=== PATIENT | female | born 1935 | race Caucasian/White ===

== ENCOUNTER 2022-07-27 14:52 | Outpatient (CLI) | payer MEDICARE, BC, SELFPAY ==
[2022-07-27 17:44] LABS: Chloride* 102 mmol/L (96-114); Potassium* 4.1 mmol/L (3.6-5.1); Sodium* 140 mmol/L (135-149)
[2022-07-27 17:46] LABS: Cholesterol* 193 mg/dL (90-199); Creatinine* 0.8 mg/dL (0.5-1.5); Estimated Glomerular Filt Rate 72 ml/min
[2022-07-27 17:47] LABS: Blood Urea Nitrogen* 18 mg/dL (7-30); Calcium* 10.3 mg/dL (8.4-10.6); Carbon Dioxide* 30 mmol/L (20-32); Glucose* 90 mg/dL (60-115); Triglycerides* 86 mg/dL (40-149)
[2022-07-27 17:48] LABS: HDL Cholesterol* 77 mg/dL (>=50); LDL Cholesterol Calculated 99 mg/dL (<100)
== END 2022-07-27 14:53 | disposition home or self-care (01) ==
PROVIDERS: PCP Family Medicine; Visit Provider Family Medicine
DX: Z00.00 Encounter for general adult medical examination without abnormal findings (principal); I10 Essential (primary) hypertension; E78.5 Hyperlipidemia, unspecified; E55.9 Vitamin D deficiency, unspecified; Z79.01 Long term (current) use of anticoagulants
CPT/HCPCS: 80048; 80061

== ENCOUNTER 2023-04-25 15:49 | Outpatient (CLI) | payer MEDICARE, BC, SELFPAY | END 2023-04-25 15:50 | disposition home or self-care (01) | LOC: AMB 04-28 13:25 | PROVIDERS: PCP Family Medicine; Visit Provider Family Medicine | DX: S39.92XA Unspecified injury of lower back, initial encounter (principal); W01.0XXA Fall on same level from slipping, tripping and stumbling without subsequent striking against object, initial encounter; Y92.009 Unspecified place in unspecified non-institutional (private) residence as the place of occurrence of the external cause | CPT/HCPCS: A0425; A0429 ==

== ENCOUNTER 2023-04-25 16:35 | Inpatient (IN) | payer MEDICARE, BC, SELFPAY ==
[2023-04-25] VITALS (22 sets, daily range): BP systolic 101–136; BP diastolic 58–91; PULSE 77–104; RESP 18–30; TEMP 36.3–36.8; O2SAT 76–94; BMI 29.2; BMI 28.4
--- NOTE | 2023-04-25 16:39 | ED.FALL ---
HPI - Fall General Time Seen by Provider: 16:39 Date Seen: 04/25/23 Chief Complaint: Fall/Minor Trauma Stated Complaint: Fall Time Seen by Provider: 04/25/23 16:36 Source: patient, EMS and RN notes reviewed Mode of arrival: EMS Limitations: no limitations History of Present Illness HPI Narrative: Patient is an 87-year-old female that fell at home around noon, she resides independently but has 5 children that come help and assist her frequently. She states that she simply caught her foot in a strap or rib in that was on the ground causing her to fall. She states she fell on a carpeted area. She fell on her buttocks, she states she feels a pulling sensation if she moves her lower legs, cannot walk due to the pain. It is more in the right buttock area where she feels the pain. States she did not hit her head but when ask her she is on blood thinners, she states she is on 2 of them. Her medication reconciliation lists Celebrex and apixaban. Her right buttock/hip area is the only place that hurts. Pain is not going down the leg. No numbness tingling. She is having no difficulty breathing, no chest pain, no abdominal pain. Denies any underlying medical reason like dizziness or chest pain that cause the fall. She states she simply tripped because her foot got caught. complaint: fall Fall from: standing Fall witnessed: no Place fall occurred: home Loss of consciousness: No Related Data Home Medications Medication Instructions Recorded Confirmed acetaminophen 500 mg capsule 500 mg PO Q6H PRN 06/04/22 09/21/22 cholecalciferol (vitamin D3) 25 2,000 unit PO DAILY 06/04/22 09/21/22 mcg (1,000 unit) tablet multivitamin 1 tab PO QDAY 06/04/22 09/21/22 potassium chloride 8 mEq 8 meq PO QDAY 06/04/22 09/21/22 tablet,extended release Previous Rx's Medication Instructions Recorded hydrochlorothiazide 12.5 mg tablet 12.5 mg PO QDAY #90 tabs 05/17/22 celecoxib 200 mg capsule 200 mg PO QDAY #21 caps 09/21/22 apixaban 5 mg tablet (Eliquis) See Rx Instructions .Route 10/12/22 .COMPLEX #60 ea sertraline 25 mg tablet See Rx Instructions .Route 10/15/22 .COMPLEX #90 ea potassium chloride 10 mEq 20 meq (2 x 10 mEq) PO QDAY #180 12/14/22 tablet,extended release tabs omeprazole 40 mg capsule,delayed 40 mg PO DAILY #90 caps 12/16/22 release rosuvastatin 10 mg tablet 10 mg PO QDAY #90 tabs 12/20/22 Allergies Allergy/AdvReac Type Severity Reaction Status Date / Time adhesive Allergy Intermediate Redness of Verified 04/25/23 16:38 Skin Review of Systems Status of ROS: Reports: 6 or more systems reviewed and unremarkable except as noted in History and below [facility] Medical History Uterine cancer ?C55 - Malignant neoplasm of uterus, part unspecified (ICD-10) Hiatal hernia ?K44.9 - Diaphragmatic hernia without obstruction or gangrene (ICD-10) Surgical History History of colonoscopy ?Z98.890 - Other specified postprocedural states (ICD-10) History of hysterectomy ?Z90.710 - Acquired absence of both cervix and uterus (ICD-10) History of cholecystectomy ?Z90.49 - Acquired absence of other specified parts of digestive tract (ICD-10) History of appendectomy ?Z90.49 - Acquired absence of other specified parts of digestive tract (ICD-10) Social History Smoking Status: Former smoker Do you use any of these nicotine containing products: None Second hand tobacco smoke exposure: No How often do you have a drink containing alcohol: never How often do you have six or more drinks on one occasion: Never AUDIT-C Alcohol total score: 0 Non-prescribed substance use: denies use Little interest or pleasure in doing things: not at all Feeling down, depressed, or hopeless: not at all service: No Exam Const: Vital Signs, click to edit/add: Vital Signs - 24 hr 04/25/23 16:38 04/25/23 18:07 Temperature 97.4 F L Pulse Rate [Pulse Oximeter] 104 H Respiratory Rate 30 H Blood Pressure [Ri ght Upper Arm] 101/58 L Pulse Oximetry 92 86 L Oxygen Delivery Me thod Room Air Documenting provider has reviewed patient's vital signs: yes Common normals: no apparent distress, average body habitus, oriented x3 and no limitations General appearance: cooperative, comfortable, disheveled and frail appearing Other: Very pleasant and alert. Does not seem uncomfortable unless she attempts moving her pelvis. HENMT: Common normals: normocephalic, head/scalp atraumatic, hearing grossly normal bilaterally and external nose normal Head and scalp: normocephalic and atraumatic Nose: external nose normal Other: No oral pharyngeal trauma noted but oral mucosa is dry. Eye: Common normals: PERRL, EOMs intact bilaterally, conjunctivae normal and no scleral icterus Conjunctiva: conjunctiva(e) normal Pupil: PERRL Neck & C-Spine: Common normals: full ROM (No midline tenderness, no paraspinous tenderness.), no lymphadenopathy, supple, no meningeal signs and no JVD Chest: Common normals: inspection of chest normal and palpation of chest normal Resp: Common normals: normal respiratory effort, no retractions, no use of accessory muscles and clear to auscultation bilaterally Auscultation: clear to auscultation bilaterally Cardio: Common normals: no JVD, regular rate, regular rhythm, S1 normal heart sound, S2 normal heart sound, no gallops, no clicks and no murmurs Rate: regular rate Rhythm: regular rhythm Heart sounds: S1 normal and S2 normal GI: Common normals: Normal to inspection, nondistended, normoactive bowel sounds present, soft to palpation, non-tender, no hepatosplenomegaly, no masses and no bruits Palpation: soft and no hepatosplenomegaly Extremity: Common normals: normal to inspection Other: Moving her feet and bouncing them a bit bilaterally when I come in. There is no shortening of the lower extremities. She has a superficial abrasion on the anterior left knee but no joint effusion, nontender through this joint. When I move her lower extremities, she complains of pain in the right buttock area, does not seem to have definitive hip pain with internal external rotation of the hip. Admittedly, I am not taking her through a large range of motion of this right hip until I see x-rays. Palpating along the right buttock over the bone is painful for her. Neuro: Steve Coma Scale: document GCS findings Steve coma scale eye opening: Spontaneous (4) [place] coma scale verbal response: Orientated (5) [place] coma scale motor response: Obey commands (6) [place] coma scale total score: 15 Common normals: oriented x3, CN's II-XII intact bilaterally, moves all extremities and no sensory deficits noted Meningeal signs: no meningeal signs Course Course Hospital Course: Given that this was unwitnessed and she is on Eliquis, will obtain noncontrast head CT to rule out occult intracranial pathology or minor bleed. Will be getting right hip and pelvis films. Ice is backed a pelvic fracture more so than hip fracture at this time although she still could have hip fracture. Will get appropriate labs. It is likely that this patient will not be returning home given her pain complaints, do suspect underlying fracture which is why we are imaging. Reevaluation(s) Time of Reevaluation #1: 18:07 Reevaluation #1: Reviewed with patient and 2 of her children that her here that she has a pelvic fracture. We are still awaiting the official radiology over read but it appears that there is a right pelvic fracture. Will initiate some Tylenol, add on to pain management from there. She has had nothing. Reviewed with her that she will not be able to return to home where she is independent. She will need a rehab stay likely to facilitate pain management and ambulation/PT/OT until she can safely mobilize independently. Will talk to the hospitalists here next. Consultations Consultation #1: Have reviewed with ortho, talked to Mirela ROACH. Agrees with plan for hospitalization and transition to rehab unless patient can miraculously show independence with this injury. Time: 18:30 Consultation #2: Reviewed with the hospitalist Dr. Hope accepts patient. Time: 19:00 Vital Signs Vital signs: Initial Vital Signs Temperature 97.4 F L 04/25/23 16:38 Temperature Source Temporal Artery Scan 04/25/23 16:38 Pulse Rate 104 H 04/25/23 16:38 Respiratory Rate 30 H 04/25/23 16:38 Blood Pressure 101/58 L 04/25/23 16:38 Blood Pressure Mean 72 04/25/23 16:38 Blood Pressure Position Supine 04/25/23 16:38 Pulse Oximetry 92 04/25/23 16:38 Oxygen Delivery Method Room Air 04/25/23 16:38 Vital Signs Temperature 97.4 F L 04/25/23 16:38 Pulse Rate 104 H 04/25/23 16:38 Respiratory Rate 30 H 04/25/23 16:38 Blood Pressure 101/58 L 04/25/23 16:38 Pulse Oximetry 92 04/25/23 16:38 Oxygen Delivery Method Room Air 04/25/23 16:38 Temperature 97.4 F L 04/25/23 16:38 Pulse Rate 104 H 04/25/23 16:38 Respiratory Rate 30 H 04/25/23 16:38 Blood Pressure 101/58 L 04/25/23 16:38 Pulse Oximetry 86 L 04/25/23 18:07 Oxygen Delivery Method Room Air 04/25/23 16:38 - Fall Lab Data Attestation: I reviewed the patient's lab results. Labs: Lab Results 04/25/23 04/25/23 04/25/23 Range/Units 17:06 17:38 18:49 WBC 13.28 H (4.50-11.00) K/uL RBC 4.32 (4.00-5.20) m/uL Hgb 14.8 (12.0-16.0) gm/dL Hct 43.6 (33.0-51.0) % MCV 101 H (80-100) fL MCH 34 (26-34) pg MCHC 34 (32-36) gm/dL RDW Coeff of [place] 13.4 (11.5-15.5) % Plt Count 196 (140-440) K/uL Neut % (Auto) 86.0 H (42.0-72.0) % Lymph % (Auto) 5.3 L (20-44) % [place] % (Auto) 7.8 (0.0-11.0) % Eos % (Auto) 0.1 (0.0-7.0) % Baso % (Auto) 0.5 (0.0-3.0) % Neut # (Auto) 11.40 H (1.7-7.0) K/uL Lymph # (Auto) 0.70 L (0.90-2.90) K/uL [place] # (Auto) 1.00 H (0.00-0.90) K/UL Eos # (Auto) 0.00 (0.00-0.50) K/uL Baso # (Auto) 0.10 (0.00-0.30) K/uL Abs Immat Gran (auto) 0.00 (0.00-0.30) K/uL Imm/Tot Granulo (auto) 0.3 % Sodium 138 (135-149) mmol/L Potassium 3.8 (3.6-5.1) mmol/L Chloride 106 (96-114) mmol/L Carbon Dioxide 26 (20-32) mmol/L BUN 17 (7-30) mg/dL Creatinine 0.8 (0.5-1.5) mg/dL Estimated Creat Clear 34.87 Estimated GFR 72 ml/min Glucose 121 H (60-115) mg/dL Lactate 2.5 H (0.5-1.9) mmol/L Calcium 9.8 (8.4-10.6) mg/dL Total Bilirubin 2.2 H (0.1-1.5) mg/dL AST 54 H (12-35) U/L ALT 31 (4-35) U/L Alkaline Phosphatase 124 (40-150) U/L Total Creatine Kinase 120 H (41-117) U/L Total Protein 7.5 (6.0-8.3) g/dL Albumin 3.7 (3.3-5.0) g/dL Lab Acknowledgement New Spec Needed Test Added Imaging Data CT scan - head: Attestation: I have reviewed the pertinent imaging results. Radiologist's impression: Patient: REX MÁRQUEZ Facility:?[facility] Patient ID:?[id number] Site Patient ID:?[id number]. Site :?[id number] Study:?CT Head W/O-04/25/2023 5:11:58 PM Ordering Physician:Cj Verdin Final Report: CLINICAL HISTORY: Fall on anticoagulation therapy. TECHNIQUE: Standard helical CT image acquisition of the brain was performed. COMPARISON: Head CT dated 02/21/2021. FINDINGS: There is no intracranial hemorrhage, extra-axial collection, mass effect, or midline shift. Be-white matter differentiation is preserved. Age-appropriate [id number] generalized parenchymal volume loss. No acute hydrocephalus. Patchy hypoattenuation in the white matter of both hemispheres likely reflects sequela of chronic small vessel ischemia. Intracranial atherosclerotic calcification. No displaced calvarial fracture. Thinning of the ocular lenses. The paranasal sinuses are unremarkable. The mastoid air cells are unremarkable. IMPRESSION: 1. No CT evidence of acute intracranial abnormality or closed head injury. 2. Senescent changes including generalized parenchymal volume loss and findings likely reflecting sequela of chronic small vessel ischemia. Please note that all CT scans at this facility use dose modulation, iterative reconstruction, and/or weight-based dosing when appropriate to reduce radiation dose to as low as reasonably achievable. Dictated by Pee Peacock MD @ 04/25/2023 6:25:01 PM (Electronic Signature) XR pelvis/right hip: Attestation: I have reviewed the pertinent imaging results. My impression: See inferior and superior right pubic rami fractures on my preliminary read. Radiologist's impression: Patient: REX MÁRQUEZ Facility:?[facility] Patient ID:?[id number] Site Patient ID:?[id number] Site :?[id number] Study:?XRay Hip Right -04/25/2023 5:12:41 PM Ordering Physician:Cj Verdin Final Report: INDICATION: Fall. TECHNIQUE: Two views the right hip. COMPARISON: 05/11/2021. FINDINGS: Diffuse demineralization. Minimally displaced fractures of the right superior and inferior pubic rami. No dislocation or additional fracture identified. Mild bilateral hip joint space narrowing. The pubic symphysis and sacroiliac joints are intact. Spondylosis of the imaged inferior lumbar spine. IMPRESSION: 1. Minimally displaced right superior and inferior pubic rami fractures. 2. Diffuse demineralization without additional fracture identified. Dictated by Junito Schroeder MD @ 04/25/2023 6:35:46 PM Dictated by: Junito Schroeder MD @ 04/25/2023 18:35:56 (Electronic Signature) ECG Data Attestation: I personally reviewed and interpreted this ECG as follows: (Atrial fibrillation with PVCs, rate 98 beats per minute.) ECG interpretation date: 04/25/23 ECG interpretation time: 19:01 Critical Care Time Critical Care Time Critical Care Time: No Discharge Plan Discharge Clinical Impression: Fall, Fracture of inferior pubic ramus, Fracture of right superior pubic ramus Patient Disposition: Admitted As Observation
--- NOTE | 2023-04-25 16:43 | CRLHL7_ITS ---
For Patients: As a result of the Century Cures Act, medical imaging exams and procedure reports are released immediately into your electronic medical record. You may view this report before your referring provider. If you have questions, please contact your health care provider. CLINICAL HISTORY: Fall on anticoagulation therapy. TECHNIQUE: Standard helical CT image acquisition of the brain was performed. COMPARISON: Head CT dated 02/21/2021. FINDINGS: There is no intracranial hemorrhage, extra-axial collection, mass effect, or midline shift. Be-white matter differentiation is preserved. Age-appropriate [id number] generalized parenchymal volume loss. No acute hydrocephalus. Patchy hypoattenuation in the white matter of both hemispheres likely reflects sequela of chronic small vessel ischemia. Intracranial atherosclerotic calcification. No displaced calvarial fracture. Thinning of the ocular lenses. The paranasal sinuses are unremarkable. The mastoid air cells are unremarkable. IMPRESSION: 1. No CT evidence of acute intracranial abnormality or closed head injury. 2. Senescent changes including generalized parenchymal volume loss and findings likely reflecting sequela of chronic small vessel ischemia. Please note that all CT scans at this facility use dose modulation, iterative reconstruction, and/or weight-based dosing when appropriate to reduce radiation dose to as low as reasonably achievable. Dictated by Pee Peacock MD @ 04/25/2023 6:25:01 PM (Electronically Signed)
--- NOTE | 2023-04-25 16:43 | CRLHL7_ITS ---
For Patients: As a result of the Century Cures Act, medical imaging exams and procedure reports are released immediately into your electronic medical record. You may view this report before your referring provider. If you have questions, please contact your health care provider. INDICATION: Fall. TECHNIQUE: Two views the right hip. COMPARISON: 05/11/2021. FINDINGS: Diffuse demineralization. Minimally displaced fractures of the right superior and inferior pubic rami. No dislocation or additional fracture identified. Mild bilateral hip joint space narrowing. The pubic symphysis and sacroiliac joints are intact. Spondylosis of the imaged inferior lumbar spine. IMPRESSION: 1. Minimally displaced right superior and inferior pubic rami fractures. 2. Diffuse demineralization without additional fracture identified. Dictated by Junito Schroeder MD @ 04/25/2023 6:35:46 PM Dictated by: Junito Schroeder MD @ 04/25/2023 18:35:56 (Electronically Signed)
[2023-04-25 17:07] LABS: Lab Add On Test New Spec Needed
[2023-04-25 17:44] LABS: Basophils Percent Auto 0.5 % (0.0-3.0); Eosinophils Percent Auto 0.1 % (0.0-7.0); Hematocrit 43.6 % (33.0-51.0); Hemoglobin* 14.8 gm/dL (12.0-16.0); Immature Granulocytes Pct Auto 0.3 %; Lactate* 2.5 mmol/L (0.5-1.9); Lymphocytes Percent Auto 5.3 % (20-44); Mean Corpuscular HGB Conc 34 gm/dL (32-36); Mean Corpuscular Hemoglobin 34 pg (26-34); Mean Corpuscular Volume 101 fL (80-100); Monocytes Percent Auto 7.8 % (0.0-11.0); Platelet Count* 196 K/uL (140-440); RDW Coefficient of Variation % 13.4 % (11.5-15.5); Red Blood Count 4.32 m/uL (4.00-5.20); White Blood Count* 13.28 K/uL (4.50-11.00)
[2023-04-25 18:00] LABS: Albumin* 3.7 g/dL (3.3-5.0)
[2023-04-25 18:01] LABS: Chloride* 106 mmol/L (96-114); Potassium* 3.8 mmol/L (3.6-5.1); Sodium* 138 mmol/L (135-149)
[2023-04-25 18:02] LABS: Slide Review Reflex No
[2023-04-25 18:03] LABS: Alkaline Phosphatase* 124 U/L (40-150); Aspartate Amino Transferase* 54 U/L (12-35); Blood Urea Nitrogen* 17 mg/dL (7-30); Carbon Dioxide* 26 mmol/L (20-32); Creatinine* 0.8 mg/dL (0.5-1.5); Est. Creatinine Clearance* 34.87; Estimated Glomerular Filt Rate 72 ml/min; Total Protein* 7.5 g/dL (6.0-8.3)
[2023-04-25 18:04] LABS: Alanine Aminotransferase* 31 U/L (4-35); Calcium* 9.8 mg/dL (8.4-10.6); Creatine Kinase* 120 U/L (41-117); Glucose* 121 mg/dL (60-115)
[2023-04-25] MEDS: 0.9 % SODIUM CHLORIDE 500 ML 500 ML IV (18:38)
[2023-04-25] MEDS: ACETAMINOPHEN 500 MG TABLET 1000 MG PO (18:39)
[2023-04-25 19:42] LABS: Troponin I* 0.02 ng/mL (0.01-0.04)
--- NOTE | 2023-04-25 20:04 | ED.NURSE ---
pt report given off to oncoming nurse
--- NOTE | 2023-04-25 21:16 | PC.NURSE ---
report given to dianna VELASQUEZ on medsurg, patient taken to room 245, all belongings sent with patient and family
--- NOTE | 2023-04-25 22:50 | PM.IMHP1 ---
Hospitalist- H&P: HPI History of Present Illness Time Seen by Provider: 22:00 Date Seen: 04/25/23 Chief complaint: Fall Narrative: Sakina Taveras is a 87 year old woman who lives alone in her home independently, although her children assist her daily. She is legally blind and deaf. According to family her cognition has been gradually declining. She was in her usual state of health until around noon today when she was walking in her home and her foot became caught or entangled in something and she fell over. This was not witnessed. Fell on a carpeted area. Fell on her buttock. Did not strike her head. No loss of consciousness. Had immediate right buttock pain. Eventually was able to get help and then came into the emergency department for further assessment subsequently. Review of Systems Status of ROS: Reports: 10 or more systems reviewed and unremarkable except as noted in History and below Narrative: Denies any other pain. Denies angina, anginal equivalent, syncope, near syncope, nausea, vomiting, palpitations or fluttering, diaphoresis, dyspnea at rest, paroxysmal nocturnal dyspnea, orthopnea, claudication, edema. Denies diarrhea, constipation, dysuria, urgency, frequency, hematuria. No other trauma or injury. No other fall. No recent travel. No recent blood loss of any sort. Attempted getting her comfortable in the emergency department but were unable to do so even after IV morphine. Difficult for patient to understand that she cannot go home now. She understands she has fractures in her pelvis, and she has a lot of pain in association with this, but she still does not understand how she it is that she cannot go home. We tell her multiple times that she is not able to go home because her pain is not under control, she is unable to demonstrate to us that she is independent in her cares, let alone simply transfer herself while laying down due to severity of the pain. Moreover she is unable to demonstrate ability to care for herself independently at this time and she has no one that can support her 24 hours a day in her home. [facility] Medical History (Updated 04/25/23 @ 23:17 by Paul Hope MD) Nonexudative age-related macular degeneration ?H35.3190 - Nonexudative age-related macular degeneration, unspecified eye, stage unspecified (ICD-10) Age-related cognitive decline ?R41.81 - Age-related cognitive decline (ICD-10) Sensorineural hearing loss (SNHL) of both ears ?H90.3 - Sensorineural hearing loss, bilateral (ICD-10) GERD (gastroesophageal reflux disease) ?K21.9 - Gastro-esophageal reflux disease without esophagitis (ICD-10) Insomnia ?G47.00 - Insomnia, unspecified (ICD-10) DJD of right shoulder ?M19.011 - Primary osteoarthritis, right shoulder (ICD-10) Vitamin D deficiency ?E55.9 - Vitamin D deficiency, unspecified (ICD-10) Upper back pain (05/12/11) ?M54.9 - Dorsalgia, unspecified (ICD-10) Seasonal allergic rhinitis ?J30.2 - Other seasonal allergic rhinitis (ICD-10) Rotator cuff arthropathy of left shoulder ?M12.812 - Other specific arthropathies, not elsewhere classified, left shoulder (ICD-10) Restless legs syndrome ?G25.81 - Restless legs syndrome (ICD-10) Polyp of colon ?K63.5 - Polyp of colon (ICD-10) Osteopenia (05/18/11) ?M85.80 - Other specified disorders of bone density and structure, unspecified site (ICD-10) Osteoarthritis of thoracic spine ?M47.814 - Spondylosis without myelopathy or radiculopathy, thoracic region (ICD-10) Menopausal flushing (05/18/11) ?N95.1 - Menopausal and female climacteric states (ICD-10) residential current use of anticoagulant therapy ?Z79.01 - termite inspector (current) use of anticoagulants (ICD-10) Diverticulosis of intestine (04/21/10) ?K57.90 - Diverticulosis of intestine, part unspecified, without perforation or abscess without bleeding (ICD-10) Constipation ?K59.00 - Constipation, unspecified (ICD-10) Basal cell carcinoma of nose ?C44.311 - Basal cell carcinoma of skin of nose (ICD-10) Atrial fibrillation ?I48.91 - Unspecified atrial fibrillation (ICD-10) Osteoarthritis of right knee ?M17.11 - Unilateral primary osteoarthritis, right knee (ICD-10) Anxiety ?F41.9 - Anxiety disorder, unspecified (ICD-10) Hiatal hernia ?K44.9 - Diaphragmatic hernia without obstruction or gangrene (ICD-10) Hypertension ?I10 - Essential (primary) hypertension (ICD-10) Hyperlipidemia ?E78.5 - Hyperlipidemia, unspecified (ICD-10) Uterine cancer ?C55 - Malignant neoplasm of uterus, part unspecified (ICD-10) Surgical History History of colonoscopy ?Z98.890 - Other specified postprocedural states (ICD-10) History of hysterectomy ?Z90.710 - Acquired absence of both cervix and uterus (ICD-10) History of cholecystectomy ?Z90.49 - Acquired absence of other specified parts of digestive tract (ICD-10) History of appendectomy ?Z90.49 - Acquired absence of other specified parts of digestive tract (ICD-10) Social History (Updated 04/25/23 @ 22:52 by Paul Hope MD) Narrative: . Lives alone in her home. Needs daily support from children who live nearby. Declining cognition. Legally deaf and blind. Designates daughter, Gabbie Domingo, as power of real estate attorney for health should that be needed. Requests DNR DNI resuscitation status. Dr. Juan Ac is her primary care physician. Smoking Status: Former smoker Do you use any of these nicotine containing products: None Second hand tobacco smoke exposure: No How often do you have a drink containing alcohol: never How often do you have six or more drinks on one occasion: Never AUDIT-C Alcohol total score: 0 Non-prescribed substance use: denies use Little interest or pleasure in doing things: not at all Feeling down, depressed, or hopeless: not at all service: No Meds Home Medications and Allergies Home Medications Medication Instructions Recorded Confirmed Type acetaminophen 500 mg capsule 500 mg PO Q6H PRN 06/04/22 09/21/22 History cholecalciferol (vitamin D3) 25 2,000 unit PO DAILY 06/04/22 09/21/22 History mcg (1,000 unit) tablet multivitamin 1 tab PO QDAY 06/04/22 09/21/22 History potassium chloride 8 mEq 8 meq PO QDAY 06/04/22 09/21/22 History tablet,extended release Allergies Allergy/AdvReac Type Severity Reaction Status Date / Time adhesive Allergy Intermediate Redness of Verified 07/31/23 16:38 Skin Exam Narrative: Exam Narrative: Appears rather anxious when I examine her in her hospital bed. Having difficulty understanding why she cannot return home presently even though she is not able to achieve any level of meaningful comfort yet at this time despite oral and IV analgesics. Very hard of hearing requiring time and effort and patient's to communicate with her meaningfully. Legally blind and unable to demonstrate ability to see adequately. Alert, oriented to self, place, in part to time, in part to situation. Mood and affect are congruent. Winces with any attempted movement of her pelvis even when supported by family or nursing staff. Tympanic membranes are normal. Dry buccal mucosa. Dentition in poor repair. Missing teeth. No icterus. No conjunctival injection. Extraocular muscles are intact. No nystagmus. Neck is supple. Midline trachea. No JVD or hepatojugular reflux. No carotid bruits. Lungs are clear to auscultation. Barrel-shaped chest. Mildly prolonged expiratory phase. No wheezing, rhonchi, or rales. Chest wall excursions full. No CVA tenderness. No tenderness to percussion over the spine. Heart tones with irregular rhythm. Normal S1-S2. Soft systolic murmur left lower sternal border. PMI not laterally displaced. Abdomen with active bowel sounds, soft, nontender. No rebound or guarding. Extremities without edema. Palpable pulses in upper and lower extremities. Extremities are cool. Capillary refill less than 3 seconds. Discomfort with passive range of motion of the right hip. Normal passive range of motion of the right knee, ankle. Normal passive range of motion and active range of motion of the left hip, knee, ankle. No focal motor neurologic deficits. No tremor or asterixis. Skin is intact. Const: Vital Signs, click to edit/add: Vital Signs - 24 hr 04/25/23 16:38 04/25/23 17:22 04/25/23 17:30 Temperature 97.4 F L Pulse Rate 87 95 Pulse Rate [Pulse Oximeter] 104 H Pulse Rate [Right Pulse Oximeter] Respiratory Rate 30 H Blood Pressure Blood Pressure [Ri ght Arm] Blood Pressure [Ri ght Upper Arm] 101/58 L Pulse Oximetry 92 86 L 92 Oxygen Delivery [facility] Room Air 04/25/23 17:34 04/25/23 17:45 04/25/23 18:00 Temperature Pulse Rate 88 89 Pulse Rate [Pulse Oximeter] Pulse Rate [Right Pulse Oximeter] Respiratory Rate Blood Pressure Blood Pressure [Ri ght Arm] Blood Pressure [Ri ght Upper Arm] Pulse Oximetry 87 L 93 76 L Oxygen Delivery [facility] 04/25/23 18:04 04/25/23 18:07 04/25/23 18:15 Temperature Pulse Rate 86 89 Pulse Rate [Pulse Oximeter] Pulse Rate [Right Pulse Oximeter] Respiratory Rate Blood Pressure Blood Pressure [Ri ght Arm] Blood Pressure [Ri ght Upper Arm] Pulse Oximetry 87 L 86 L 89 Oxygen Delivery [facility] 04/25/23 18:30 04/25/23 18:33 04/25/23 18:45 Temperature Pulse Rate 92 85 94 Pulse Rate [Pulse Oximeter] Pulse Rate [Right Pulse Oximeter] Respiratory Rate Blood Pressure 124/91 H Blood Pressure [Ri ght Arm] Blood Pressure [Ri ght Upper Arm] Pulse Oximetry 86 L 93 89 Oxygen Delivery [facility] 04/25/23 19:03 04/25/23 19:07 04/25/23 19:07 Temperature Pulse Rate 104 H Pulse Rate [Pulse Oximeter] Pulse Rate [Right Pulse Oximeter] Respiratory Rate Blood Pressure 112/64 Blood Pressure [Ri ght Arm] Blood Pressure [Ri ght Upper Arm] 112/64 Pulse Oximetry 91 Oxygen Delivery [facility] 04/25/23 19:09 04/25/23 19:31 04/25/23 20:01 Temperature 97.4 F L Pulse Rate 77 84 Pulse Rate [Pulse Oximeter] Pulse Rate [Right Pulse Oximeter] Respiratory Rate 22 18 18 Blood Pressure 117/67 122/85 Blood Pressure [Ri ght Arm] Blood Pressure [Ri ght Upper Arm] Pulse Oximetry 93 94 Oxygen Delivery [facility] 04/25/23 20:28 04/25/23 20:31 04/25/23 21:01 Temperature 98.3 F Pulse Rate 82 81 Pulse Rate [Pulse Oximeter] 80 Pulse Rate [Right Pulse Oximeter] Respiratory Rate 18 18 18 Blood Pressure 114/74 112/72 Blood Pressure [Ri ght Arm] Blood Pressure [Ri ght Upper Arm] 122/85 Pulse Oximetry 92 94 94 Oxygen Delivery [facility] Room Air 04/25/23 21:30 Temperature 98.2 F Pulse Rate Pulse Rate [Pulse Oximeter] Pulse Rate [Right Pulse Oximeter] 93 Respiratory Rate 18 Blood Pressure Blood Pressure [Ri ght Arm] 136/67 Blood Pressure [Ri ght Upper Arm] Pulse Oximetry 94 Oxygen Delivery [facility] Hospitalist - H&P: Result Labs Labs: Short CBC 04/25/23 Range/Units 17:38 WBC 13.28 H (4.50-11.00) K/uL Hgb 14.8 (12.0-16.0) gm/dL Hct 43.6 (33.0-51.0) % Plt Count 196 (140-440) K/uL BMP 04/25/23 17:38 Sodium 138 Potassium 3.8 Chloride 106 Carbon Dioxide 26 BUN 17 Creatinine 0.8 Glucose 121 H Calcium 9.8 Cardiac Enzymes 04/25/23 Range/Units 17:38 Total Creatine Kinase 120 H (41-117) U/L Troponin I 0.02 (0.01-0.04) ng/mL Liver Function 04/25/23 Range/Units 17:38 Total Bilirubin 2.2 H (0.1-1.5) mg/dL AST 54 H (12-35) U/L ALT 31 (4-35) U/L Alkaline Phosphatase 124 (40-150) U/L Albumin 3.7 (3.3-5.0) g/dL ECG ECG interpretation date: 04/25/23 ECG interpretation time: 22:00 Prior ECG tracings: not available for review Interpretation: Atrial fibrillation. Rate controlled. Poor R-wave progression anteriorly. No acute ischemic changes. Imaging CT scan - head: Attestation: I have reviewed the pertinent imaging results. Radiologist's impression: IMPRESSION: 1. No CT evidence of acute intracranial abnormality or closed head injury. 2. Senescent changes including generalized parenchymal volume loss and findings likely reflecting sequela of chronic small vessel ischemia. Right hip x-ray: Attestation: I have reviewed the pertinent imaging results. Radiologist's impression: IMPRESSION: 1. Minimally displaced right superior and inferior pubic rami fractures. 2. Diffuse demineralization without additional fracture identified. Assessment and Plan Assessment and plan (1) Fall: Status: Acute (2) Fracture of inferior pubic ramus: Status: Acute (3) Fracture of right superior pubic ramus: Status: Acute (4) Pain: Problem comment: Unable to control pain emergency department including with IV morphine. Status: Acute (5) Age-related cognitive decline: Status: Acute (6) Nonexudative age-related macular degeneration: Problem comment: legally blind Status: Acute (7) Sensorineural hearing loss (SNHL) of both ears: Status: Acute (8) Osteoporosis: Problem comment: Will warrant treatment consideration when in outpatient setting Status: Acute (9) Physical debility: Problem comment: Due to legal blindness, near deafness, and now right pelvic fracture and pain associated with this. Status: Acute Plan 1. Reviewed with patient, daughter, and son. 2. Admit to hospital for pain control efforts, nonpharmacologic and pharmacologic. 3. Physical therapy and occupational therapy assessment and interventions, including cognitive assessment and interventions. 4. Continue with scheduled acetaminophen, and as needed oral oxycodone and IV morphine. After we achieve adequate pain control, consider scheduling oxycodone or adding low-dose transdermal fentanyl patch if warranted. For now will continue with her daily scheduled celecoxib 200 mg orally once daily, plus PPI that she is already on. Will add as needed tizanidine for muscle spasm. 5. IV fluids for her mild dehydrated state. 6. Schedule stool softener. 7. supervisor customer services to assist with discharge disposition planning. Recommended to patient family that we consider transitional care services for her before we can safely help her return home. 8. Continue with other supportive efforts for now. Will hold off on her hydrochlorothiazide initially. 9. Continue with her apixaban for now. 10. Orthopedic surgery consultation and recommendations. I am told that the orthopedic surgery team has already reviewed the patient's medical record and x-rays and has made a preliminary determination that she is not a surgical candidate for these fractures, and she may weight bear as tolerated. 11. Given the patient's underlying comorbid medical conditions, including her legal blindness and near deafness, her baseline physical debility just got a hold lot more difficult to manage with this acute fracture and pain. Will focus on trying to achieve adequate pain control initially. I explained to patient and family that the opioids that we add may place her at higher risk for complications, including constipation, urinary retention, decreased cognition, etc. 12. Continue to monitor labs. Will ask for a direct bilirubin given the mildly elevated total bilirubin. I am hopeful that she has an indirect hyperbilirubinemia in association with the mildly dehydrated state. If not, and she has an elevated direct bilirubin, may need to consider abdominal ultrasound assessment. Monitor CBC, lactate, LFTs, renal function. 13. Patient, daughter, son are in agreement with above stated plans and recommendations. Answered their questions to their satisfaction.
[2023-04-25 23:05] LABS: Bilirubin Direct* 0.3 mg/dL (0.0-0.5)
[2023-04-25 23:10] LABS: Bilirubin Total* 2.1 mg/dL (0.1-1.5)
[2023-04-25] MEDS: 0.9 % SODIUM CHLORIDE 1000 ml 1,000 ML IV (23:54)
[2023-04-25] MEDS: MELATONIN 3 MG TABLET PO (23:57)
[2023-04-25] MEDS: OXYCODONE 5 MG TABLET 2.5 MG PO (23:57)
[2023-04-26] MEDS: MORPHINE 4 MG/ML INJ IVP (02:43)
[2023-04-26 03:00] VITALS: BP 137/79; PULSE 76; RESP 18; TEMP 36.8; O2SAT 90
[2023-04-26 03:39] LABS: Appearance Urine Cloudy (Clear); Bilirubin Urine Negative (Negative); Blood Urine Negative (Negative); Color Urine Yellow (Yellow); Glucose Urine Negative (Negative); Ketones Urine Negative (Negative); Leukocyte Esterase Urine Negative (Negative); Nitrite Urine Positive (Negative); Protein Urine Trace (Negative); Specific Gravity Urine >= 1.030 (1.000-1.030); pH Urine 5.5 (5.0-8.5)
[2023-04-26 03:44] LABS: Bacteria Urine Many; RBC Urine 0-2 (0-2); Squamous Epithelial Cell Urine Few (None-Few)
--- NOTE | 2023-04-26 06:22 | PC.NURSE ---
Shift note: Pt arrived to the unit at 2114 on bed. Pt presented with the history of recent fall which resulted into pubic bone fracture. Pt is legally blind and hard of hearing. Complained of pain which get worse with reposition and transfer. Used bedpan in bed. Pt has abrasion and bruise to the left knee. Accidentally removed the IV line before getting to the floor. New one inserted. Vitally stable and had adequate sleep.
[2023-04-26 06:51] LABS: HCO3 VBG 26 mmol/L (21-28); Lactate* 1.9 mmol/L (0.5-1.9); PCO2 VBG 45 mmHG (40-50); PO2 VBG 30.9 mmHG (25-47); pH VBG 7.372 (7.32-7.43)
[2023-04-26 07:01] LABS: Hematocrit 37.5 % (33.0-51.0); Hemoglobin* 12.8 gm/dL (12.0-16.0); Mean Corpuscular HGB Conc 34 gm/dL (32-36); Mean Corpuscular Hemoglobin 35 pg (26-34); Mean Corpuscular Volume 101 fL (80-100); Platelet Count* 157 K/uL (140-440); White Blood Count* 12.78 K/uL (4.50-11.00)
[2023-04-26 07:24] LABS: Slide Review Reflex No
[2023-04-26 07:31] LABS: Creatine Kinase* 155 U/L (41-117)
[2023-04-26 07:40] VITALS: BP 121/83; PULSE 68; RESP 28; TEMP 36.7; O2SAT 90
[2023-04-26] MEDS: ROSUVASTATIN CALCIUM 10 MG TABLET PO (09:02)
[2023-04-26] MEDS: OMEPRAZOLE 20 MG CAPSULE DR 40 MG PO (09:02)
[2023-04-26] MEDS: CELECOXIB 200 MG CAPSULE PO (09:02)
[2023-04-26] MEDS: SERTRALINE 50 MG TABLET 25 MG PO (09:03)
[2023-04-26] MEDS: APIXABAN 5 MG TABLET PO ×2 (09:03→20:37)
[2023-04-26] MEDS: SENNOSIDES/DOCUSATE TABLET 1 TAB PO ×2 (09:03→20:37)
[2023-04-26] MEDS: hydroCHLOROthiazide 12.5 MG CAPSULE PO (09:03)
[2023-04-26] MEDS: ACETAMINOPHEN 650 MG TABLET ER 1300 MG PO ×2 (09:08→17:01)
[2023-04-26] MEDS: OXYCODONE 5 MG TABLET PO (09:08)
[2023-04-26] MEDS: SODIUM CHLORIDE 0.9 % (FLUSH) 10 ML SYRINGE 5 ML IVF ×2 (09:09→20:37)
--- NOTE | 2023-04-26 09:39 | CRLHL7_ITS ---
For Patients: As a result of the Cures Act, medical imaging exams and procedure reports are released immediately into your electronic medical record. You may view this report before your referring provider. If you have questions, please contact your health care provider. INDICATION: tachypnea, hypoxia TECHNIQUE: Chest 1 view COMPARISON: 02/21/2021 FINDINGS: Bronchial wall thickening is present within both lungs, particularly on the right. Cardiomegaly. Mild fullness of the vascularity. Hiatal hernia. No drainable pleural effusion or pneumothorax. Degenerative changes. IMPRESSION: Bilateral bronchiolitis, right greater than left. Mild fluid overload/pulmonary venous hypertension. Dictated by Ace Kimbrough MD @ 04/26/2023 10:31:52 AM (Electronically Signed)
--- NOTE | 2023-04-26 09:46 | PM.IMPN1 ---
Progress Note: A&P Assessment and plan (1) Fall: Problem details: - likely mechanical, also has history of a fib/CHF Status: Acute (2) Fracture of inferior pubic ramus: Problem details: - nonsurgical per Ortho colleagues - WBAT Status: Acute (3) Fracture of right superior pubic ramus: Status: Acute (4) Rhabdomyolysis: Problem details: - 2/2 fall, CK improved from admission Status: Acute (5) Atrial fibrillation: Problem details: - noted on 12/15 TTE (results below) - anticoagulated on Apixaban Final Impressions: 1. Normal LV size, normal wall thickness, normal global systolic function with an estimated EF of 60 - 65%. 2. Moderately enlarged left atrium. 3. Right ventricular cavity size is mildly enlarged, global systolic RV function is normal. 4. The aortic valve is sclerotic and tricuspid, no stenosis and no regurgitation. 5. The mitral valve is normal, mild to moderate mitral regurgitation. 6. Mild-moderate tricuspid regurgitation. 7. The inferior vena cava is normal sized, respiratory size variation greater than 50%. 8. No pericardial effusion. 9. Compared to prior exam images of 11/25/2017: - Mitral regurgitation has increased. - Tricuspid regurgitation has increased. - The right ventricular systolic function is unchanged. - RV size has increased. The atria are more dilated. The atrial fibrillation is new. 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 She has no concerns for the hospitalist team this morning. Exam Narrative: Exam Narrative: GEN: Alert HEENT: EOMIs bilaterally, no scleral icterus CV: Irregularly irregular, no concerning murmurs R: Intermittent tachypnea noted during visit, occasionally has O2 saturation 87-88% on RA. Fine rales bilateral bases, no wheezing. Air movement is adequate Skin: No concerning skin lesions or rashes on exposed skin Neuro: No focal deficits Psych: Appropriate, MCI apparent Const: Vital Signs, click to edit/add: Vital Signs - 24 hr 04/25/23 16:38 04/25/23 17:22 04/25/23 17:30 Temperature 97.4 F L Pulse Rate 87 95 Pulse Rate [Pulse Oximeter] 104 H Pulse Rate [Right Pulse Oximeter] Respiratory Rate 30 H Blood Pressure Blood Pressure [Ri ght Arm] Blood Pressure [Ri ght Upper Arm] 101/58 L Pulse Oximetry 92 86 L 92 Oxygen Delivery Me thod Room Air 04/25/23 17:34 04/25/23 17:45 04/25/23 18:00 Temperature Pulse Rate 88 89 Pulse Rate [Pulse Oximeter] Pulse Rate [Right Pulse Oximeter] Respiratory Rate Blood Pressure Blood Pressure [Ri ght Arm] Blood Pressure [Ri ght Upper Arm] Pulse Oximetry 87 L 93 [facility] 04[facility] 18:04 04/25/23 18:07 04/25/23 18:15 Temperature Pulse Rate 86 89 Pulse Rate [Pulse Oximeter] Pulse Rate [Right Pulse Oximeter] Respiratory Rate Blood Pressure Blood Pressure [Ri ght Arm] Blood Pressure [Ri ght Upper Arm] Pulse Oximetry 87 L 86 L 89 [facility] 04/25/23 18:30 04/25/23 18:33 04/25/23 18:45 Temperature Pulse Rate 92 85 94 Pulse Rate [Pulse Oximeter] Pulse Rate [Right Pulse Oximeter] Respiratory Rate Blood Pressure 124/91 H Blood Pressure [Ri ght Arm] Blood Pressure [Ri ght Upper Arm] Pulse Oximetry 86 L 93 89 [facility] 04/25/23 19:03 04/25/23 19:07 04/25/23 19:07 Temperature Pulse Rate 104 H Pulse Rate [Pulse Oximeter] Pulse Rate [Right Pulse Oximeter] Respiratory Rate Blood Pressure 112/64 Blood Pressure [Ri ght Arm] Blood Pressure [Ri ght Upper Arm] 112/64 Pulse Oximetry 91 [facility] 04/25/23 19:09 04/25/23 19:31 04/25/23 20:01 Temperature 97.4 F L Pulse Rate 77 84 Pulse Rate [Pulse Oximeter] Pulse Rate [Right Pulse Oximeter] Respiratory Rate 22 18 18 Blood Pressure 117/67 122/85 Blood Pressure [Ri ght Arm] Blood Pressure [Ri ght Upper Arm] Pulse Oximetry 93 94 Oxygen Delivery [facility] 04/25/23 20:28 04/25/23 20:31 04/25/23 21:01 Temperature 98.3 F Pulse Rate 82 81 Pulse Rate [Pulse Oximeter] 80 Pulse Rate [Right Pulse Oximeter] Respiratory Rate 18 18 18 Blood Pressure 114/74 112/72 Blood Pressure [Ri ght Arm] Blood Pressure [Ri ght Upper Arm] 122/85 Pulse Oximetry 92 94 94 Oxygen Delivery [facility] Room Air 04/25/23 21:30 04/25/23 23:00 04/25/23 23:00 Temperature 98.2 F Pulse Rate Pulse Rate [Pulse Oximeter] Pulse Rate [Right Pulse Oximeter] 93 87 Respiratory Rate 18 18 18 Blood Pressure Blood Pressure [Ri ght Arm] 136/67 Blood Pressure [Ri ght Upper Arm] Pulse Oximetry 94 94 Oxygen Delivery [facility] Room Air Room Air 04/25/23 23:00 04/26/23 03:00 04/26/23 07:40 Temperature 98.2 F 98.2 F Pulse Rate Pulse Rate [Pulse Oximeter] Pulse Rate [Right Pulse Oximeter] 87 76 Respiratory Rate 18 18 28 H Blood Pressure Blood Pressure [Ri ght Arm] 133/78 137/79 Blood Pressure [Ri ght Upper Arm] Pulse Oximetry 94 90 90 Oxygen Delivery [facility] Room Air Room Air Room Air 04/26/23 07:40 04/26/23 07:40 Temperature 98.0 F Pulse Rate Pulse Rate [Pulse Oximeter] Pulse Rate [Right Pulse Oximeter] 68 68 Respiratory Rate 28 H 28 H Blood Pressure Blood Pressure [Ri ght Arm] 121/83 Blood Pressure [Ri t Upper Arm] Pulse Oximetry 90 Oxygen Delivery Me thod Room Air Labs Labs: Laboratory Results - last 24 hr 04/25/23 04/25/23 04/25/23 17:06 17:38 18:49 WBC 13.28 H RBC 4.32 Hgb 14.8 Hct 43.6 MCV 101 H MCH 34 MCHC 34 RDW Coeff of [place] 13.4 Plt Count 196 Neut % (Auto) 86.0 H Lymph % (Auto) 5.3 L [place] % (Auto) 7.8 Eos % (Auto) 0.1 Baso % (Auto) 0.5 Neut # (Auto) 11.40 H Lymph # (Auto) 0.70 L [place] # (Auto) 1.00 H Eos # (Auto) 0.00 Baso # (Auto) 0.10 Abs Immat Gran (auto) 0.00 Imm/Tot Granulo (auto) 0.3 VBG pH VBG pCO2 VBG pO2 VBG HCO3 Sodium 138 Potassium 3.8 Chloride 106 Carbon Dioxide 26 BUN 17 Creatinine 0.8 Estimated Creat Clear 34.87 Estimated GFR 72 Glucose 121 H Lactate 2.5 H Calcium 9.8 Total Bilirubin 2.1 H Direct Bilirubin 0.3 AST 54 H ALT 31 Alkaline Phosphatase 124 Total Creatine Kinase 120 H Troponin I 0.02 C-Reactive Protein Total Protein 7.5 Albumin 3.7 TSH 1.490 Urine Color Urine Appearance Urine pH Ur Specific [place] Urine Protein Urine Glucose (UA) Urine Ketones Urine Blood Urine Nitrite Urine Bilirubin Urine Urobilinogen Ur Leukocyte Esterase Urine RBC Urine WBC Ur Squamous Epith Cells Urine Bacteria Lab Acknowledgement New Spec Needed Test Added 04/25/23 04/26/23 04/26/23 22:34 03:15 05:44 WBC 12.78 H RBC 3.70 L Hgb 12.8 Hct 37.5 MCV 101 H MCH 35 H MCHC 34 RDW Coeff of [place] Plt Count 157 Neut % (Auto) Lymph % (Auto) [place] % (Auto) Eos % (Auto) Baso % (Auto) Neut # (Auto) Lymph # (Auto) [place] # (Auto) Eos # (Auto) Baso # (Auto) Abs Immat Gran (auto) Imm/Tot Granulo (auto) VBG pH 7.372 VBG pCO2 45 VBG pO2 30.9 VBG HCO3 26 Sodium Potassium Chloride Carbon Dioxide BUN Creatinine Estimated Creat Clear Estimated GFR Glucose Lactate 1.9 Calcium Total Bilirubin Direct Bilirubin AST ALT Alkaline Phosphatase Total Creatine Kinase 155 H Troponin I C-Reactive Protein 2.0 H Total Protein Albumin TSH Urine Color Yellow Urine Appearance Cloudy A Urine pH 5.5 Ur Specific [place] >= 1.030 Urine Protein Trace A Urine Glucose (UA) Negative Urine Ketones Negative Urine Blood Negative Urine Nitrite Positive A Urine Bilirubin Negative Urine Urobilinogen 2.0 A Ur Leukocyte Esterase Negative Urine RBC 0-2 Urine WBC 2-5 Ur Squamous Epith Cells Few Urine Bacteria Many A Lab Acknowledgement Test Added
[2023-04-26 11:04] VITALS: BP 136/70; PULSE 71; RESP 26; TEMP 36.8; O2SAT 90
--- NOTE | 2023-04-26 11:18 | PC.SOCIAL ---
Met with pt. who is FALSE PASS and legally blind and [id number] Gabbie @ [phone] to discuss discharge plans. Pt. will need a assisted for rehab. Family prefers placement in [facility] and [facility] in this order. Discussed that pt. may not get a 3-night qualifying stay for assisted coverage. Family had more questions about [facility] home [facility] care and home care. Answered their questions and they are in agreement pt. needs a SNF.
[2023-04-26] MEDS: cefTRIAXone 1 GM in 0.9 % SODIUM CHLORIDE Mini-bag 100 ML IVPB (11:52)
--- NOTE | 2023-04-26 14:39 | PC.NURSE ---
end of shift/ pt has been pleasant. Pt is legally blind and hard of hearing.she is alert x3 she is [place] we are using a pocket talker which does help. he has pain and got po pain meds with relief Pt has abrasion and bruise to the left knee, Mepilex was used to cover and protect. .Sl is patent. Iv fluids are infusing. PT and OT worked with pt. she was able to stand with PT at the bedside but not able to turn and pivot. Matthew is patent. she is eating and drinking. will monitor.
--- NOTE | 2023-04-26 14:49 | PC.NURSE ---
end of shift/ pt has been pleasant. Pt is legally blind and hard of hearing.she is alert x3 she is [place] we are using a pocket talker which does help. she has pain ( in her butt per Pt) and got po pain meds with relief .Sl is patent. Iv fluids are infusing. PT and OT worked with pt. she was able to stand with PT/OT at the bedside but not able to turn and pivot. she is eating and drinking. she did not void this am and bladder scan was 128, later she was incontinent and brief was changed. she is incontinent. history of A-Fib. antibiotics stated for UA
[2023-04-26 15:40] VITALS: BP 107/55; PULSE 67; RESP 24; TEMP 36.9; O2SAT 90; O2SAT 92
--- NOTE | 2023-04-26 16:00 | P.ORCN_ITS ---
History of Present Illness HPI Time Seen by Provider: 16:00 Date Seen: 04/26/23 Consult date: 04/26/23 Requesting physician: Paul Hope Chief complaint: Fall Narrative: Sakina is a very pleasant 87-year-old young lady, hospitalized with right superior and inferior pubic ramus fractures. She lives alone in her home independently. She is legally blind and deaf. On 04/25 she was walking in her home and her foot became caught in something and she fell. She fell on her buttock. She has buttock pain. X-rays were taken. Review of Systems Narrative: Patient denies nausea, vomiting, fever, chills, chest pain, shortness of breath [facility] Medical History (Updated 04/26/23 @ 16:09 by Mirela Lilly PA-C) Atrial fibrillation ?I48.91 - Unspecified atrial fibrillation (ICD-10) Nonexudative age-related macular degeneration ?H35.3190 - Nonexudative age-related macular degeneration, unspecified eye, stage unspecified (ICD-10) Age-related cognitive decline ?R41.81 - Age-related cognitive decline (ICD-10) Sensorineural hearing loss (SNHL) of both ears ?H90.3 - Sensorineural hearing loss, bilateral (ICD-10) GERD (gastroesophageal reflux disease) ?K21.9 - Gastro-esophageal reflux disease without esophagitis (ICD-10) Insomnia ?G47.00 - Insomnia, unspecified (ICD-10) DJD of right shoulder ?M19.011 - Primary osteoarthritis, right shoulder (ICD-10) Vitamin D deficiency ?E55.9 - Vitamin D deficiency, unspecified (ICD-10) Upper back pain (05/12/11) ?M54.9 - Dorsalgia, unspecified (ICD-10) Seasonal allergic rhinitis ?J30.2 - Other seasonal allergic rhinitis (ICD-10) Rotator cuff arthropathy of left shoulder ?M12.812 - Other specific arthropathies, not elsewhere classified, left shoulder (ICD-10) Restless legs syndrome ?G25.81 - Restless legs syndrome (ICD-10) Polyp of colon ?K63.5 - Polyp of colon (ICD-10) Osteopenia (05/18/11) ?M85.80 - Other specified disorders of bone density and structure, unspecified site (ICD-10) Osteoarthritis of thoracic spine ?M47.814 - Spondylosis without myelopathy or radiculopathy, thoracic region (ICD-10) Menopausal flushing (05/18/11) ?N95.1 - Menopausal and female climacteric states (ICD-10) ad terminal makeup operator current use of anticoagulant therapy ?Z79.01 - ad terminal makeup operator (current) use of anticoagulants (ICD-10) Diverticulosis of intestine (04/21/10) ?K57.90 - Diverticulosis of intestine, part unspecified, without perforation or abscess without bleeding (ICD-10) Constipation ?K59.00 - Constipation, unspecified (ICD-10) Basal cell carcinoma of nose ?C44.311 - Basal cell carcinoma of skin of nose (ICD-10) Osteoarthritis of right knee ?M17.11 - Unilateral primary osteoarthritis, right knee (ICD-10) Anxiety ?F41.9 - Anxiety disorder, unspecified (ICD-10) Hiatal hernia ?K44.9 - Diaphragmatic hernia without obstruction or gangrene (ICD-10) Hypertension ?I10 - Essential (primary) hypertension (ICD-10) Hyperlipidemia ?E78.5 - Hyperlipidemia, unspecified (ICD-10) Uterine cancer ?C55 - Malignant neoplasm of uterus, part unspecified (ICD-10) Surgical History History of colonoscopy ?Z98.890 - Other specified postprocedural states (ICD-10) History of hysterectomy ?Z90.710 - Acquired absence of both cervix and uterus (ICD-10) History of cholecystectomy ?Z90.49 - Acquired absence of other specified parts of digestive tract (ICD- 10) History of appendectomy ?Z90.49 - Acquired absence of other specified parts of digestive tract (ICD- 10) Social History (Updated 04/25/23 @ 22:52 by Paul Hope MD) Narrative: . Lives alone in her home. Needs daily support from children who live nearby. Declining cognition. Legally deaf and blind. Designates Gabbie martin, as power of corporate attorney for health should that be needed. Requests DNR DNI resuscitation status. Dr. Juan Ac is her primary care physician. What is your current living situation?: I presently have a place to live Problems where you live: no known problems Problems where you live details: N/A In the past 12 months, utilities in danger of being shut off: no In the past 12 mos, have been you worried that your food would run out before you had money to buy more?: never true In the past 12 mos, the food you bought just didn't last and you didn't have money to buy more?: never true Highest level of school completed/degree received: GED or equivalent Smoking Status: Former smoker Do you use any of these nicotine containing products: None Second hand tobacco smoke exposure: No How often do you have a drink containing alcohol: never How often do you have six or more drinks on one occasion: Never AUDIT-C Alcohol total score: 0 Non-prescribed substance use: denies use How often does anyone, including family, friends and others, physically hurt you : never How often does anyone, including family, friends and others, insult or talk down to you: never How often does anyone, including family, friends and others, threaten you with harm: never How often does anyone, including family, friends and others, scream or curse at you: never Little interest or pleasure in doing things: not at all Feeling down, depressed, or hopeless: not at all service: No Meds Home Medications and Allergies Home Medications Medication Instructions Recorded Confirmed Type acetaminophen 500 mg capsule 500 mg PO Q6H PRN 06/04/22 04/26/23 History cholecalciferol (vitamin D3) 25 2,000 unit PO DAILY 06/04/22 04/26/23 History mcg (1,000 unit) tablet multivitamin 1 tab PO DAILY 06/04/22 04/26/23 History celecoxib 200 mg capsule 200 mg PO DAILY 04/26/23 04/26/23 History hydrochlorothiazide 12.5 mg tablet 12.5 mg PO DAILY 04/26/23 04/26/23 History potassium chloride 10 mEq 20 meq PO DAILY 04/26/23 04/26/23 History tablet,extended release rosuvastatin 10 mg tablet 10 mg PO DAILY 04/26/23 04/26/23 History Allergies Allergy/AdvReac Type Severity Reaction Status Date / Time adhesive Allergy Intermediate Redness of Verified 04/25/23 16:38 Skin Ortho Exam Narrative Exam Narrative: Alert . Patient is in no acute distress. Converses without labored breathing. Difficulty with hearing and vision. She is not able to ambulate. And examination of the right lower extremity shows CMS is intact. No pain with gentle log-rolling of the hip. Able to the dorsiflex and plantar flex the right ankle and great toe. Capillary refill less than 2 seconds. Const Vital Signs, click to edit/add: Vital Signs - 24 hr 04/25/23 16:38 04/25/23 17:22 04/25/23 17:30 Temperature 97.4 F L Pulse Rate 87 95 Pulse Rate [Pulse Oximeter] 104 H Pulse Rate [Right Pulse Oximeter] Respiratory Rate 30 H Blood Pressure Blood Pressure [Right Arm] Blood Pressure [Right Upper Arm] 101/58 L Pulse Oximetry 92 86 L 92 Oxygen Delivery Method Room Air 04/25/23 17:34 04/25/23 17:45 04/25/23 18:00 Temperature Pulse Rate 88 89 Pulse Rate [Pulse Oximeter] Pulse Rate [Right Pulse Oximeter] Respiratory Rate Blood Pressure Blood Pressure [Right Arm] Blood Pressure [Right Upper Arm] Pulse Oximetry 87 L 93 76 L Oxygen Delivery Method 04/25/23 18:04 04/25/23 18:07 04/25/23 18:15 Temperature Pulse Rate 86 89 Pulse Rate [Pulse Oximeter] Pulse Rate [Right Pulse Oximeter] Respiratory Rate Blood Pressure Blood Pressure [Right Arm] Blood Pressure [Right Upper Arm] Pulse Oximetry 87 L 86 L 89 Oxygen Delivery Method 04/25/23 18:30 04/25/23 18:33 04/25/23 18:45 Temperature Pulse Rate 92 85 94 Pulse Rate [Pulse Oximeter] Pulse Rate [Right Pulse Oximeter] Respiratory Rate Blood Pressure 124/91 H Blood Pressure [Right Arm] Blood Pressure [Right Upper Arm] Pulse Oximetry 86 L 93 89 Oxygen Delivery Method 04/25/23 19:03 04/25/23 19:07 04/25/23 19:07 Temperature Pulse Rate 104 H Pulse Rate [Pulse Oximeter] Pulse Rate [Right Pulse Oximeter] Respiratory Rate Blood Pressure 112/64 Blood Pressure [Right Arm] Blood Pressure [Right Upper Arm] 112/64 Pulse Oximetry 91 Oxygen Delivery Method 04/25/23 19:09 04/25/23 19:31 04/25/23 20:01 Temperature 97.4 F L Pulse Rate 77 84 Pulse Rate [Pulse Oximeter] Pulse Rate [Right Pulse Oximeter] Respiratory Rate 22 18 18 Blood Pressure 117/67 122/85 Blood Pressure [Right Arm] Blood Pressure [Right Upper Arm] Pulse Oximetry 93 94 Oxygen Delivery Method 04/25/23 20:28 04/25/23 20:31 04/25/23 21:01 Temperature 98.3 F Pulse Rate 82 81 Pulse Rate [Pulse Oximeter] 80 Pulse Rate [Right Pulse Oximeter] Respiratory Rate 18 18 18 Blood Pressure 114/74 112/72 Blood Pressure [Right Arm] Blood Pressure [Right Upper Arm] 122/85 Pulse Oximetry 92 94 94 Oxygen Delivery Method Room Air 04/25/23 21:30 04/25/23 23:00 04/25/23 23:00 Temperature 98.2 F Pulse Rate Pulse Rate [Pulse Oximeter] Pulse Rate [Right Pulse Oximeter] 93 87 Respiratory Rate 18 18 18 Blood Pressure Blood Pressure [Right Arm] 136/67 Blood Pressure [Right Upper Arm] Pulse Oximetry 94 94 Oxygen Delivery Method Room Air Room Air 04/25/23 23:00 04/26/23 03:00 04/26/23 07:40 Temperature 98.2 F 98.2 F Pulse Rate Pulse Rate [Pulse Oximeter] Pulse Rate [Right Pulse Oximeter] 87 76 Respiratory Rate 18 18 28 H Blood Pressure Blood Pressure [Right Arm] 133/78 137/79 Blood Pressure [Right Upper Arm] Pulse Oximetry 94 90 90 Oxygen Delivery Method Room Air Room Air Room Air 04/26/23 07:40 04/26/23 07:40 04/26/23 11:04 Temperature 98.0 F 98.2 F Pulse Rate Pulse Rate [Pulse Oximeter] Pulse Rate [Right Pulse Oximeter] 68 68 71 Respiratory Rate 28 H 28 H 26 H Blood Pressure Blood Pressure [Right Arm] 121/83 136/70 Blood Pressure [Right Upper Arm] Pulse Oximetry 90 90 Oxygen Delivery Method Room Air Room Air 04/26/23 15:40 04/26/23 15:40 Temperature 98.5 F Pulse Rate Pulse Rate [Pulse Oximeter] Pulse Rate [Right Pulse Oximeter] 67 Respiratory Rate 24 24 Blood Pressure Blood Pressure [Right Arm] 107/55 L Blood Pressure [Right Upper Arm] Pulse Oximetry 92 90 Oxygen Delivery Method Room Air Room Air Results Labs Labs: Laboratory Results - last 48 hr 0704/25/23 04/25/23 17:06 17:38 18:49 WBC 13.28 H RBC 4.32 Hgb 14.8 Hct 43.6 MCV 101 H MCH 34 MCHC 34 RDW Coeff of [place] 13.4 Plt Count 196 Neut % (Auto) 86.0 H Lymph % (Auto) 5.3 L Grainger % (Auto) 7.8 Eos % (Auto) 0.1 Baso % (Auto) 0.5 Neut # (Auto) 11.40 H Lymph # (Auto) 0.70 L Grainger # (Auto) 1.00 H Eos # (Auto) 0.00 Baso # (Auto) 0.10 Abs Immat Gran (auto) 0.00 Imm/Tot Granulo (auto) 0.3 VBG pH VBG pCO2 VBG pO2 VBG HCO3 Sodium 138 Potassium 3.8 Chloride 106 Carbon Dioxide 26 BUN 17 Creatinine 0.8 Estimated Creat Clear 34.87 Estimated GFR 72 Glucose 121 H Lactate 2.5 H Calcium 9.8 Total Bilirubin 2.1 H Direct Bilirubin 0.3 AST 54 H ALT 31 Alkaline Phosphatase 124 Total Creatine Kinase 120 H Troponin I 0.02 C-Reactive Protein Total Protein 7.5 Albumin 3.7 TSH 1.490 Urine Color Urine Appearance Urine pH Ur Specific [place] Urine Protein Urine Glucose (UA) Urine Ketones Urine Blood Urine Nitrite Urine Bilirubin Urine Urobilinogen Ur Leukocyte Esterase Urine RBC Urine WBC Ur Squamous Epith Cells Urine Bacteria Lab Acknowledgement New Spec Needed Test Added 04/25/23 04/26/23 04/26/23 22:34 03:15 05:44 WBC 12.78 H RBC 3.70 L Hgb 12.8 Hct 37.5 MCV 101 H MCH 35 H MCHC 34 RDW Coeff of [place] Plt Count 157 Neut % (Auto) Lymph % (Auto) Grainger % (Auto) Eos % (Auto) Baso % (Auto) Neut # (Auto) Lymph # (Auto) Grainger # (Auto) Eos # (Auto) Baso # (Auto) Abs Immat Gran (auto) Imm/Tot Granulo (auto) VBG pH 7.372 VBG pCO2 45 VBG pO2 30.9 VBG HCO3 26 Sodium Potassium Chloride Carbon Dioxide BUN Creatinine Estimated Creat Clear Estimated GFR Glucose Lactate 1.9 Calcium Total Bilirubin Direct Bilirubin AST ALT Alkaline Phosphatase Total Creatine Kinase 155 H Troponin I C-Reactive Protein 2.0 H Total Protein Albumin TSH Urine Color Yellow Urine Appearance Cloudy A Urine pH 5.5 Ur Specific [place] >= 1.030 Urine Protein Trace A Urine Glucose (UA) Negative Urine Ketones Negative Urine Blood Negative Urine Nitrite Positive A Urine Bilirubin Negative Urine Urobilinogen 2.0 A Ur Leukocyte Esterase Negative Urine RBC 0-2 Urine WBC 2-5 Ur Squamous Epith Cells Few Urine Bacteria Many A Lab Acknowledgement Test Added Assessment and Plan Assessment and plan (1) Fall: Problem comment: - likely mechanical, also has history of a fib/CHF Status: Acute Total time spent: Total time spent is greater than 50% in coordination of care (as documented) at patient's floor/unit and/or counseling patient: (2) Fracture of inferior pubic ramus: Problem comment: - nonsurgical per Ortho colleagues - WBAT Status: Acute Total time spent: Total time spent is greater than 50% in coordination of care (as documented) at patient's floor/unit and/or counseling patient: (3) Fracture of right superior pubic ramus: Problem comment: X-rays are reviewed from 04/25/2023 right hip 1. Minimally displaced right superior and inferior pubic rami fractures. 2. Diffuse demineralization without additional fracture identified. Sakina may weight bear when tolerated on the right lower extremity. This may take 4-6 weeks. She will need group home facility. She is on apixaban. She would benefit from Andrea stockings for at least 1 month, as well. 23 hours per day. She will follow up with Orthopedics p.r.n.. No further imaging is needed unless there are further concerns. Physical therapy and occupational therapy daily at group home facility for general strengthening and mobilization. Status: Acute Total time spent: Total time spent is greater than 50% in coordination of care (as documented) at patient's floor/unit and/or counseling patient: (4) Rhabdomyolysis: Problem comment: - 2/2 fall, CK improved from admission Status: Acute Total time spent: Total time spent is greater than 50% in coordination of care (as documented) at patient's floor/unit and/or counseling patient: (5) Atrial fibrillation: Problem comment: - noted on 12/15 TTE (results below) - anticoagulated on Apixaban Final Impressions: 1. Normal LV size, normal wall thickness, normal global systolic function with an estimated EF of 60 - 65%. 2. Moderately enlarged left atrium. 3. Right ventricular cavity size is mildly enlarged, global systolic RV function is normal. 4. The aortic valve is sclerotic and tricuspid, no stenosis and no regurgitation. 5. The mitral valve is normal, mild to moderate mitral regurgitation. 6. Mild-moderate tricuspid regurgitation. 7. The inferior vena cava is normal sized, respiratory size variation greater than 50%. 8. No pericardial effusion. 9. Compared to prior exam images of 11/25/2017: - Mitral regurgitation has increased. - Tricuspid regurgitation has increased. - The right ventricular systolic function is unchanged. - RV size has increased. The atria are more dilated. The atrial fibrillation is new. Status: Acute Total time spent: Total time spent is greater than 50% in coordination of care (as documented) at patient's floor/unit and/or counseling patient: (6) Acute on chronic respiratory failure with hypoxia: Problem comment: - O2 saturations 87-89% intermittently on RA 04/26 - likely related to CHF, + bronchiolitis + fluid overload on CXR 04/26 - RT referral, TTE ordered Status: Acute Total time spent: Total time spent is greater than 50% in coordination of care (as documented) at patient's floor/unit and/or counseling patient: (7) Pain: Problem comment: - improved pain control 04/26 with scheduled APAP + 5mg Oxycodone prn Status: Acute Total time spent: Total time spent is greater than 50% in coordination of care (as documented) at patient's floor/unit and/or counseling patient: (8) Age-related cognitive decline: Problem comment: - noted by family with associated anxiety - increase Sertraline as requested by family (from 25mg -->50mg on 04/27) - OT following Status: Acute Total time spent: Total time spent is greater than 50% in coordination of care (as documented) at patient's floor/unit and/or counseling patient: (9) Nonexudative age-related macular degeneration: Problem comment: - legally blind Status: Acute Total time spent: Total time spent is greater than 50% in coordination of care (as documented) at patient's floor/unit and/or counseling patient: (10) Sensorineural hearing loss (SNHL) of both ears: Status: Acute Total time spent: Total time spent is greater than 50% in coordination of care (as documented) at patient's floor/unit and/or counseling patient: (11) Physical debility: Problem comment: - therapies ordered, will likely need SNF upon discharge Status: Acute Total time spent: Total time spent is greater than 50% in coordination of care (as documented) at patient's floor/unit and/or counseling patient:
--- NOTE | 2023-04-26 16:03 | PC.SOCIAL ---
Pt. has been accepted to [facility] for tomorrow in a shared room. Pt. will need to transport via non-emergency EMS. They want pt. to arrive around 11am. Family has been updated and is still hoping the physician will find criteria for pt. to have her 3-night inpatient stay.
[2023-04-26 19:00] VITALS: BP 102/52; PULSE 70; RESP 18; TEMP 36.9; O2SAT 92
--- NOTE | 2023-04-26 19:21 | PC.NURSE ---
Pt heavy 2, gait belt, and walker. Suggested to night RN to try EZ stand to see if this would be beneficial to pt. Pt stating I have no appetite. Ate bits of [employer] for dinner.
[2023-04-26 22:54] VITALS: BP 116/72; PULSE 74; RESP 18; TEMP 36.7; O2SAT 92
[2023-04-27] MEDS: ACETAMINOPHEN 650 MG TABLET ER 1300 MG PO ×2 (01:52→09:09)
[2023-04-27 03:00] VITALS: BP 122/73; PULSE 70; RESP 18; TEMP 37; O2SAT 92
[2023-04-27 06:24] LABS: HCO3 VBG 29 mmol/L (21-28); PCO2 VBG 46 mmHG (40-50); PO2 VBG 29.1 mmHG (25-47); pH VBG 7.413 (7.32-7.43)
[2023-04-27 06:25] LABS: Eosinophils Absolute Auto 0.23 K/uL (0.00-0.50); Eosinophils Percent Auto 2.2 % (0.0-7.0); Hematocrit 33.8 % (33.0-51.0); Hemoglobin* 11.3 gm/dL (12.0-16.0); Immature Granulocytes Abs Auto 0.04 K/uL (0.00-0.30); Immature Granulocytes Pct Auto 0.4 %; Lymphocytes Percent Auto 10.2 % (20-44); Mean Corpuscular HGB Conc 33 gm/dL (32-36); Mean Corpuscular Hemoglobin 34 pg (26-34); Mean Corpuscular Volume 102 fL (80-100); Neutrophils Percent Auto 77.2 % (42.0-72.0); Platelet Count* 135 K/uL (140-440); RDW Coefficient of Variation % 13.7 % (11.5-15.5); Red Blood Count 3.32 m/uL (4.00-5.20); White Blood Count* 10.47 K/uL (4.50-11.00)
[2023-04-27 06:29] LABS: Slide Review Reflex No
--- NOTE | 2023-04-27 06:39 | PC.NURSE ---
Shift note: Pt id doing well this morning. Pt has been tolerated very well, only complained of pain during turning and reposition. Pt has been in bed throughout the shift. Alert but disoriented occasionally. Vitally stable.
[2023-04-27 06:48] LABS: Chloride* 107 mmol/L (96-114); Potassium* 3.4 mmol/L (3.6-5.1); Sodium* 137 mmol/L (135-149)
[2023-04-27 06:50] LABS: Creatinine* 0.8 mg/dL (0.5-1.5); Est. Creatinine Clearance* 34.87; Estimated Glomerular Filt Rate 72 ml/min
[2023-04-27 06:51] LABS: Blood Urea Nitrogen* 35 mg/dL (7-30); Carbon Dioxide* 30 mmol/L (20-32); Glucose* 100 mg/dL (60-115)
[2023-04-27 06:52] LABS: Calcium* 8.9 mg/dL (8.4-10.6)
[2023-04-27 06:54] LABS: C Reactive Protein* 5.7 mg/dL (0.5-1.0)
[2023-04-27 07:05] LABS: NT Pro B Type NatriureticPept* 2030 pg/mL
[2023-04-27] MEDS: OXYCODONE 5 MG TABLET PO (08:07)
[2023-04-27 08:25] VITALS: BP 145/79; PULSE 85; RESP 24; TEMP 36.4; O2SAT 93
[2023-04-27] MEDS: SENNOSIDES/DOCUSATE TABLET 1 TAB PO (08:35)
[2023-04-27] MEDS: OMEPRAZOLE 20 MG CAPSULE DR 40 MG PO (08:35)
[2023-04-27] MEDS: APIXABAN 5 MG TABLET PO (08:35)
[2023-04-27] MEDS: SODIUM CHLORIDE 0.9 % (FLUSH) 10 ML SYRINGE 5 ML IVF (08:37)
[2023-04-27] MEDS: SERTRALINE 50 MG TABLET PO (08:38)
--- NOTE | 2023-04-27 09:07 | P.DS_ITS ---
DS: Providers Provider Date Seen: 04/27/23 Date of admission: 04/25/23 23:20 Primary care physician: Wally Catherine MD Admitting Clinician: Paul Hope MD Consults: OT, PT, SW, Orthopedic Surgery Attending Physician on discharge: Makayla Hanna MD Date of Discharge: 04/27/23 DS: Diagnosis Discharge Diagnosis (1) Fall: Status: Acute Problem details: - likely mechanical, also has history of a fib/CHF (2) Fracture of inferior pubic ramus: Status: Acute Problem details: - nonsurgical per Ortho colleagues - WBAT (3) Fracture of right superior pubic ramus: Status: Acute Problem details: X-rays are reviewed from 04/25/2023 right hip 1. Minimally displaced right superior and inferior pubic rami fractures. 2. Diffuse demineralization without additional fracture identified. - per Ortho: Sakina may weight bear when tolerated on the right lower extremity. This may take 4-6 weeks. She will need [facility] facility. She is on apixaban. She would benefit from Andrea stockings for at least 1 month, as well. 23 hours per day. She will follow up with Orthopedics p.r.n.. No further imaging is needed unless there are further concerns. Physical therapy and occupational therapy daily at jail facility for general strengthening and mobilization. (4) Rhabdomyolysis: Status: Acute Problem details: - 2/2 fall, CK improved from admission (5) Atrial fibrillation: Status: Acute Problem details: - rate controlled, anticoagulated on Apixaban - TTE 04/26, results below: Final Impressions: 1. Normal LV size, normal wall thickness, normal global systolic function with an estimated EF of 65 - 70%. 2. Right ventricular cavity size is mildly enlarged, global systolic RV function is borderline reduced. 3. Moderately enlarged left atrium. 4. Moderate tricuspid regurgitation. 5. Moderately increased estimated pulmonary systolic pressures by tricuspid regurgitation velocity and right atrial pressure (~50 mmHg). 6. The inferior vena cava is dilated, respiratory size variation greater than 50%. (6) Acute on chronic respiratory failure with hypoxia: Status: Acute Problem details: - O2 saturations 87-89% for a short time on 04/26, did not require supplemental oxygen - likely related to bedbound status, bronchiolitis + fluid overload on CXR 8/1 (7) Pain: Status: Acute Problem details: - improved pain control 04/26 with scheduled APAP + 5mg Oxycodone prn (8) Age-related cognitive decline: Status: Acute Problem details: - noted by family with associated anxiety - increase Sertraline as requested by family (from 25mg -->50mg on 04/27) - OT following (9) Nonexudative age-related macular degeneration: Status: Acute Problem details: - legally blind (10) Sensorineural hearing loss (SNHL) of both ears: Status: Acute (11) Physical debility: Status: Acute Problem details: - therapies ordered, will need SNF upon discharge DS: Summary Hospital Course Hospital Course: Sakina is a pleasant 87-year-old female who presented to the hospital after mechanical fall at home on 04/25. In the emergency room, she was found to have a fracture of her inferior and superior right pubic rami and required admission for pain control and SNF placement. Comorbidities with details noted above, remained stable during stay. UA appeared positive in the ER, received 1 dose of ceftriaxone; culture exhibits no growth to date upon discharge, so antibiotics were not continued. Patient medically appropriate for discharge to SNF on 04/27/23. Status at Discharge Cognitive/behavioral status at discharge: Cognitive impairment noted Overall status at discharge: patient is progressing back to baseline Time Spent with Patient Time attestation: Total time spent providing and/or coordinating discharge services: Time spent: Greater than 30 minutes Specific discharge activities: Family updates, care coordination, medication reconciliation Exam Narrative: Exam Narrative: GEN: Sitting comfortably in bed, alert. Oriented to self. Hard of hearing, answering questions appropriately HEENT: EOMIs bilaterally, no scleral icterus CV: Rate controlled atrial fibrillation R: LCTA bilaterally Skin: No concerning skin lesions or rashes on exposed skin Neuro: Nonfocal Psych: Appropriate, mild anxiety regarding SNF d/c Const: Vital Signs, click to edit/add: Vital Signs - 24 hr 04/26/23 11:04 04/26/23 15:40 04/26/23 15:40 Temperature 98.2 F 98.5 F Pulse Rate [Right Pulse Oximeter] 71 67 Respiratory Rate 26 H 24 24 Blood Pressure [Ri ght Arm] 136/70 107/55 L Pulse Oximetry 90 92 90 Oxygen Delivery Me thod Room Air Room Air Room Air 04/26/23 19:00 04/26/23 22:54 04/26/23 22:54 Temperature 98.5 F Pulse Rate [Right Pulse Oximeter] 70 74 Respiratory Rate 18 18 18 Blood Pressure [Ri ght Arm] 102/52 L Pulse Oximetry 92 92 Oxygen Delivery Me thod Room Air Room Air 04/26/23 22:54 04/27/23 03:00 Temperature 98.1 F 98.6 F Pulse Rate [Right Pulse Oximeter] 74 70 Respiratory Rate 18 18 Blood Pressure [Ri ght Arm] 116/72 122/73 Pulse Oximetry 92 92 Oxygen Delivery Me thod Room Air Room Air DS: Data Data Completed and Pending Labs on day of discharge: Labs from last 24 hours 04/27/23 05:40 WBC 10.47 RBC 3.32 L Hgb 11.3 L Hct 33.8 MCV 102 H MCH 34 MCHC 33 RDW Coeff of [place] 13.7 Plt Count 135 L Neut % (Auto) 77.2 H Lymph % (Auto) 10.2 L [place] % (Auto) 9.0 Eos % (Auto) 2.2 Baso % (Auto) 1.0 Neut # (Auto) 8.10 H Lymph # (Auto) 1.10 [place] # (Auto) 0.90 Eos # (Auto) 0.23 Baso # (Auto) 0.10 Abs Immat Gran (auto) 0.04 Imm/Tot Granulo (auto) 0.4 VBG pH 7.413 VBG pCO2 46 VBG pO2 29.1 VBG HCO3 29 H Sodium 137 Potassium 3.4 L Chloride 107 Carbon Dioxide 30 BUN 35 H Creatinine 0.8 Estimated Creat Clear 34.87 Estimated GFR 72 Glucose 100 Calcium 8.9 C-Reactive Protein 5.7 H NT-Pro-B Natriuret Pep 2030 Preliminary micro results at discharge 04/26/23 Unknown Urine Culture - Preliminary Urine,Clean Catch Culture in Progress Discharge Plan Discharge Disposition: Xfer [facility] Date of Admission: 04/25/23 23:20 Attending Provider on Discharge: Makayla Hanna Consulting Providers: Shen Edwards Primary Care Provider: Wally Catherine Condition: Improved Anticipated Discharge Date/Time: 04/27/23 10:30 Discharge Medications: New tizanidine 4 mg Tablet 2 mg PO QID PRN (Reason: Muscle Spasm) Qty: 20 0RF sennosides-docusate sodium [Stool Softener-Laxative] 8.6-50 mg Tablet 1 tab PO BID Qty: 60 0RF oxycodone 5 mg Tablet 2.5 - 5 mg PO Q4H PRN (Reason: Pain) Qty: 20 0RF acetaminophen 650 mg Tablet Extended Release 1,300 mg PO Q8H Qty: 90 0RF sertraline 50 mg Tablet 50 mg PO DAILY Qty: 30 0RF Continued cholecalciferol (vitamin D3) 25 mcg (1,000 unit) tablet 2,000 unit PO DAILY multivitamin Tablet 1 tab PO DAILY celecoxib 200 mg capsule 200 mg PO DAILY potassium chloride 10 mEq tablet extended release 20 meq PO DAILY rosuvastatin 10 mg tablet 10 mg PO DAILY hydrochlorothiazide 12.5 mg tablet 12.5 mg PO DAILY Eliquis 5 mg tablet See Rx Instructions .ROUTE .COMPLEX Qty: 60 11RF Dose Instruction: TAKE ONE TABLET BY MOUTH TWICE A DAY Rx Instructions: TAKE ONE TABLET BY MOUTH TWICE A DAY omeprazole 40 mg capsule,delayed release(DR/EC) 40 mg PO DAILY Qty: 90 3RF Discontinued acetaminophen 500 mg capsule 500 mg PO Q6H PRN sertraline 25 mg tablet See Rx Instructions .ROUTE .COMPLEX Qty: 90 3RF Dose Instruction: TAKE ONE TABLET BY MOUTH DAILY Rx Instructions: TAKE ONE TABLET BY MOUTH DAILY Discharge Orders: Discharge Order (Routine); Ordered 04/27/23 Ordered By: Makayla Hanna Additional Instructions: We have increased your Sertraline to 50mg daily. For pain: scheduled Celebrex and Tylenol, prn Oxycodone. Activity Level: No strenuous activity and Use Walker Activity Detail: per therapies Discharge Diet: Regular Follow Up Appointments: [facility] [Outside] (Patient being discharged to [facility] Wally Catherine MD [Primary Care Provider] - (prn) Wound Care: n/a Ostomy Care: n/a Admit to: SNF Discharge Potential: Fair Length of Stay: 30-90 days Can use facility standing orders?: Yes Code Status: DNR/DNI TEDs: Bilateral Knee Rehab Potential: Fair Therapy: Physical Therapy and Occupational Therapy Therapy Orders: Evaluate and Treat and Gait Training Therapy Orders Additional Information: OT and PT at jail facility daily Oxygen: No Urinary Catheter: No Glucose Checks: n/a Next INR: n/a Orders are good >30 days: Yes Signature: Makayla Hanna MD
--- NOTE | 2023-04-27 10:42 | PC.NURSE ---
Discharge: Patient pleasant and cooperative. Patient vitally stable, lungs clear, BS WNL, IV removed, catheter intact. Patient has 10/10 pelvic pain with movement, tylenol and 5mg of oxy given once, patient pain decreases to 6/10. Patient is EZ-stand to the toilet. Patient did well with ez-stand. Patient urinating, and tolerating regular diet. Microphone used when communicating with patient. Patient's daughter signed belongings sheet and discharge form. Patient left the floor by EMS to [facility] at 1029. Nurse to nurse report given to Mana.
== END 2023-04-27 10:46 | DRG 535 ==
LOC: ED 19:03 → MEDSURG 21:03
PROVIDERS: Family Medicine; Admitting Provider Internal Medicine; Emergency Provider Family Medicine; PCP Family Medicine; Visit Provider Internal Medicine
DX: S32.511A Fracture of superior rim of right pubis, initial encounter for closed fracture (principal); J96.21 Acute and chronic respiratory failure with hypoxia; M62.82 Rhabdomyolysis; S32.591A Other specified fracture of right pubis, initial encounter for closed fracture; W01.0XXA Fall on same level from slipping, tripping and stumbling without subsequent striking against object, initial encounter; Y92.009 Unspecified place in unspecified non-institutional (private) residence as the place of occurrence of the external cause; I48.91 Unspecified atrial fibrillation; F41.9 Anxiety disorder, unspecified; Z79.01 Long term (current) use of anticoagulants; H35.3130 Nonexudative age-related macular degeneration, bilateral, stage unspecified; H54.8 Legal blindness, as defined in USA; H90.3 Sensorineural hearing loss, bilateral; G31.84 Mild cognitive impairment of uncertain or unknown etiology; M81.0 Age-related osteoporosis without current pathological fracture; I11.0 Hypertensive heart disease with heart failure; I50.9 Heart failure, unspecified; K21.9 Gastro-esophageal reflux disease without esophagitis; G25.81 Restless legs syndrome; G47.00 Insomnia, unspecified
CPT/HCPCS: 36415; 51798; 70450; 71045; 73502; 80048; 80053; 81001; 82248; 82550; 82803; 83605; 83880; 84443; 84484; 85025; 85027; 86140; 87086; 87186; 93005; 93306; 94761; 97110; 97161; 97165; 97530; 97535; 99284; 99285; A9270; J0696; J2270; J7030; J7120

== ENCOUNTER 2023-04-27 10:22 | Outpatient (CLI) | payer MEDICARE, BC, SELFPAY | END 2023-04-27 10:23 | disposition home or self-care (01) | PROVIDERS: PCP Family Medicine; Visit Provider Family Medicine | DX: R10.2 Pelvic and perineal pain (principal) | CPT/HCPCS: A0425; A0428 ==

== ENCOUNTER 2023-07-27 13:19 | Inpatient (IN) | payer MEDICARE, BC, SELFPAY ==
[2023-07-27] VITALS (12 sets, daily range): BP systolic 119–154; BP diastolic 69–99; PULSE 85–120; RESP 20–28; TEMP 36.2–37.6; O2SAT 66–100; BMI 28.8
--- NOTE | 2023-07-27 13:50 | CRLHL7_ITS ---
For Patients: As a result of the Cures Act, medical imaging exams and procedure reports are released immediately into your electronic medical record. You may view this report before your referring provider. If you have questions, please contact your health care provider. INDICATION: Shortness of breath. TECHNIQUE: Chest 1 views. COMPARISON: April 26, 2023. FINDINGS: Cardiovascular and mediastinum: Stable cardiomegaly and vascular congestion. Lungs and pleural spaces: Interstitial prominence. Probable small bilateral pleural effusions. No pneumothorax. Bones and soft tissues: No significant findings. IMPRESSION: Probable CHF exacerbation. Superimposed pneumonia should be clinically excluded. Dictated by Alberto Montalvo MD @ 07/27/2023 3:03:18 PM (Electronically Signed)
--- NOTE | 2023-07-27 13:51 | ED.NURSE ---
resp at bedside. oxy mask applied at 8L. sats 96%
[2023-07-27 14:07] LABS: Basophils Absolute Auto 0.06 K/uL (0.00-0.30); Basophils Percent Auto 0.9 % (0.0-3.0); Eosinophils Absolute Auto 0.04 K/uL (0.00-0.50); Eosinophils Percent Auto 0.6 % (0.0-7.0); Hematocrit 43.4 % (33.0-51.0); Hemoglobin* 13.2 gm/dL (12.0-16.0); Immature Granulocytes Abs Auto 0.03 K/uL (0.00-0.30); Immature Granulocytes Pct Auto 0.4 %; Lymphocytes Percent Auto 6.8 % (20-44); Mean Corpuscular HGB Conc 30 gm/dL (32-36); Mean Corpuscular Hemoglobin 33 pg (26-34); Mean Corpuscular Volume 110 fL (80-100); Neutrophils Percent Auto 78.3 % (42.0-72.0); Platelet Count* 240 K/uL (140-440); RDW Coefficient of Variation % 15.7 % (11.5-15.5); Red Blood Count 3.96 m/uL (4.00-5.20); White Blood Count* 6.79 K/uL (4.50-11.00)
[2023-07-27 14:09] LABS: Troponin, Point-of-Care* 0.35 ng/ml (0.01-0.04)
[2023-07-27 14:09] LABS: HCO3 VBG 36 mmol/L (21-28); PO2 VBG 40.5 mmHG (25-47); pH VBG 7.324 (7.32-7.43)
[2023-07-27 14:13] LABS: PCO2 VBG 69 mmHG (40-50)
[2023-07-27 14:14] LABS: Lactate* 3.1 mmol/L (0.5-1.9)
[2023-07-27] MEDS: 0.9 % SODIUM CHLORIDE 500 ML 500 ML IV (14:16)
[2023-07-27 14:17] LABS: Slide Review Reflex No
[2023-07-27] MEDS: ASPIRIN 81 MG TAB.CHEW 324 MG PO (14:19)
[2023-07-27] MEDS: HEPARIN 5,000 UNIT/0.5 ML INJ 4000 UNIT IVP (14:27)
[2023-07-27 14:32] LABS: Albumin* 3.6 g/dL (3.3-5.0); Chloride* 91 mmol/L (96-114)
[2023-07-27] MEDS: HEPARIN 25,000 UNIT/500 ML BAG 18 UNIT IV (14:32)
[2023-07-27 14:33] LABS: Potassium* 3.6 mmol/L (3.6-5.1); Sodium* 137 mmol/L (135-149)
[2023-07-27 14:35] LABS: Alanine Aminotransferase* 42 U/L (4-35); Alkaline Phosphatase* 200 U/L (40-150); Anion Gap 11 mEq/L (7-15); Aspartate Amino Transferase* 75 U/L (12-35); Bilirubin Direct* 0.2 mg/dL (0.0-0.5); Bilirubin Total* 1.5 mg/dL (0.1-1.5); Blood Urea Nitrogen* 22 mg/dL (7-30); Carbon Dioxide* 35 mmol/L (20-32); Creatinine* 0.8 mg/dL (0.5-1.5); Est. Creatinine Clearance* 34.87; Estimated Glomerular Filt Rate 72 ml/min; Total Protein* 8.3 g/dL (6.0-8.3)
[2023-07-27 14:36] LABS: Calcium* 9.1 mg/dL (8.4-10.6); Glucose* 151 mg/dL (60-115)
[2023-07-27 14:38] LABS: C Reactive Protein* 0.9 mg/dL (0.5-1.0)
[2023-07-27 14:42] LABS: PCR FLU A Negative PCR FLU A (Negative); PCR FLU B Negative PCR FLU B (Negative); PCR RSV Negative PCR RSV (Negative)
[2023-07-27 14:44] LABS: SARS PCR* POSITIVE SARS-CoV-2 (Negative)
[2023-07-27 14:51] LABS: NT Pro B Type NatriureticPept* 5650 pg/mL
[2023-07-27 14:53] LABS: Troponin I* 0.48 ng/mL (0.01-0.04)
--- NOTE | 2023-07-27 15:04 | ED_ITS ---
HPI - General Adult General Chief complaint: Shortness of Breath/Dyspnea Stated complaint: Recovering from broken pelvis-fell last night back Time Seen by Provider: 07/27/23 13:40 Source: patient and family Mode of arrival: ambulatory Limitations: no limitations History of Present Illness HPI narrative: 87-year-old female presenting today with low back pain. Patient fell while ago and suffered from a pelvic fracture and fell again yesterday. However, upon arrival patient's oxygen saturation is 60% on room air. Patient states that she is not feeling short of breath, denies any chest pain or recent illness. Patient does have some mild cognitive impairment. According to her daughters who are here with her today they state that yesterday patient stated that she did ?not feel good on the inside?. According to her daughter she has not been coughing and has not had any fevers. Her daughter also states that today she was acting abnormally, having hallucinations and having conversations with her spouse with approximately 9 years ago. This is not usual behavior for her. Related Data Home Medications Medication Instructions Recorded Confirmed cholecalciferol (vitamin D3) 25 2,000 unit PO DAILY 06/04/22 06/07/23 mcg (1,000 unit) tablet multivitamin 1 tab PO DAILY 06/04/22 06/07/23 potassium chloride 10 mEq 20 meq PO DAILY 04/26/23 06/07/23 tablet,extended release Previous Rx's Medication Instructions Recorded apixaban 5 mg tablet (Eliquis) See Rx Instructions .Route 10/12/22 .COMPLEX #60 ea omeprazole 40 mg capsule,delayed 40 mg PO DAILY #90 caps 12/16/22 release acetaminophen 650 mg 1,300 mg (2 x 650 mg) PO Q8H #90 04/27/23 tablet,extended release tabs tizanidine 4 mg tablet See Rx Instructions PO QID PRN 05/25/23 Muscle Spasm #30 tabs furosemide 20 mg tablet 20 mg PO BID #180 tabs 05/27/23 rosuvastatin 10 mg tablet 10 mg PO DAILY #90 tabs 06/09/23 mirtazapine 15 mg tablet 15 mg PO QHS #60 tabs 06/13/23 paroxetine HCl 20 mg tablet (Paxil) 20 mg PO QHS #60 tabs 06/13/23 zolpidem 5 mg tablet 2.5 mg (1/2 x 5 mg) PO QHS #15 tabs 07/01/23 Allergies Allergy/AdvReac Type Severity Reaction Status Date / Time adhesive Allergy Intermediate Redness of Verified 06/02/23 14:14 Skin Review of Systems Status of ROS: Reports: 10 or more systems reviewed and unremarkable except as noted in History and below [facility] Medical History Rhabdomyolysis ?M62.82 - Rhabdomyolysis (ICD-10) Physical debility ?R53.81 - Other malaise (ICD-10) Age-related cognitive decline ?R41.81 - Age-related cognitive decline (ICD-10) DJD of right shoulder ?M19.011 - Primary osteoarthritis, right shoulder (ICD-10) Seasonal allergic rhinitis ?J30.2 - Other seasonal allergic rhinitis (ICD-10) Rotator cuff arthropathy of left shoulder ?M12.812 - Other specific arthropathies, not elsewhere classified, left shoulder (ICD-10) Restless legs syndrome ?G25.81 - Restless legs syndrome (ICD-10) Polyp of colon ?K63.5 - Polyp of colon (ICD-10) Diverticulosis of intestine (04/21/10) ?K57.90 - Diverticulosis of intestine, part unspecified, without perforation or abscess without bleeding (ICD-10) Constipation ?K59.00 - Constipation, unspecified (ICD-10) Basal cell carcinoma of nose ?C44.311 - Basal cell carcinoma of skin of nose (ICD-10) Hiatal hernia ?K44.9 - Diaphragmatic hernia without obstruction or gangrene (ICD-10) Uterine cancer ?C55 - Malignant neoplasm of uterus, part unspecified (ICD-10) Surgical History History of colonoscopy ?Z98.890 - Other specified postprocedural states (ICD-10) History of hysterectomy ?Z90.710 - Acquired absence of both cervix and uterus (ICD-10) History of cholecystectomy ?Z90.49 - Acquired absence of other specified parts of digestive tract (ICD- 10) History of appendectomy ?Z90.49 - Acquired absence of other specified parts of digestive tract (ICD- 10) Social History Narrative: . Lives alone in her home. Needs daily support from children who live nearby. Declining cognition. Legally deaf and blind. Designates daughter, Gabbie Domingo, as power of corporate associate attorney for health should that be needed. Requests DNR DNI resuscitation status. Dr. Juan Ac is her primary care physician. What is your current living situation?: I presently have a place to live Problems where you live: no known problems Problems where you live details: N/A In the past 12 months, utilities in danger of being shut off: no In past 12 months, lack of transportation kept you from medical appts, meetings, work, or getting things needed for daily living: no In the past 12 mos, have been you worried that your food would run out before you had money to buy more?: never true In the past 12 mos, the food you bought just didn't last and you didn't have money to buy more?: never true Highest level of school completed/degree received: GED or equivalent Smoking Status: Former smoker Do you use any of these nicotine containing products: None Second hand tobacco smoke exposure: No How often do you have a drink containing alcohol: never How often do you have six or more drinks on one occasion: Never AUDIT-C Alcohol total score: 0 Non-prescribed substance use: denies use How often does anyone, including family, friends and others, physically hurt you : never How often does anyone, including family, friends and others, insult or talk down to you: never How often does anyone, including family, friends and others, threaten you with harm: never How often does anyone, including family, friends and others, scream or curse at you: never Little interest or pleasure in doing things: not at all Feeling down, depressed, or hopeless: not at all service: No Exam Narrative: Exam Narrative: Well-nourished well-developed patient in acute respiratory distress, tachypnea. Awake. Answers some questions appropriately. And follows most commands. Cannot complete a sentence without needing to catch her breath. Keeps her eyes closed most of the time. HEENT: Normocephalic atraumatic. Pupils are equally round reactive to light. Extraocular muscles are intact. Conjunctivae are moist without any icterus noted. Moist mucous membranes. Neck is soft. Cardiovascular: Tachycardic, irregularly irregular rhythm. Lungs: Crackles bilaterally throughout the entire lung, the right worse than the left. Abdomen: Soft and nontender nondistended with normal bowel sounds. Extremities: [place] induration of the bilateral lower extremities with 2+ pitting edema. Skin: Well perfused without any obvious rashes. Const: Vital Signs, click to edit/add: Vital Signs - 24 hr 07/27/23 13:34 07/27/23 14:00 07/27/23 15:16 Temperature 97.2 F L Pulse Rate [Right Pulse Oximeter] 120 H Respiratory Rate 24 Blood Pressure [Ri ght Upper Arm] 144/86 H Pulse Oximetry 66 L 91 Oxygen Delivery Me thod Room Air Fraction of Inspir ed Oxygen 50 Course Course ED Course: Upon arrival patient was placed on a non-rebreather at 7 L and oxygen saturation did go up to the 90s. However given her continuously labored breathing she was switched to BiPAP and was much more comfortable. EKG, read by me, shows atrial fibrillation with a pulse of 110. Initial point of care troponin elevated at 0.35. Heparin was initiated. Chest x-ray , read by me, shows significant bilateral vascular congestion and questionable bilateral infiltrates. IV Lasix was given. VBG showing compensated CO2 retention. Shortly after the above interventions, patient's COVID test did come back positive. Remdesevir and dexamethasone initiated. Discussed findings with her family who stated that the patient is DNR but do want medical management. Discussed patient with our hospitalist who accepts the patient for admission. Vital Signs Vital signs: Initial Vital Signs Temperature 97.2 F L 07/27/23 13:34 Temperature Source Temporal Artery Scan 07/27/23 13:34 Pulse Rate 120 H 07/27/23 13:34 Respiratory Rate 24 07/27/23 13:34 Blood Pressure 144/86 H 07/27/23 13:34 Blood Pressure Mean 105 07/27/23 13:34 Blood Pressure Position Sitting 07/27/23 13:34 Pulse Oximetry 66 L 07/27/23 13:34 Oxygen Delivery Method Room Air 07/27/23 13:34 Vital Signs Temperature 97.2 F L 07/27/23 13:34 Pulse Rate 120 H 07/27/23 13:34 Respiratory Rate 24 07/27/23 13:34 Blood Pressure 144/86 H 07/27/23 13:34 Pulse Oximetry 66 L 07/27/23 13:34 Oxygen Delivery Method Room Air 07/27/23 13:34 Temperature 97.2 F L 07/27/23 13:34 Pulse Rate 120 H 07/27/23 13:34 Respiratory Rate 24 07/27/23 13:34 Blood Pressure 144/86 H 07/27/23 13:34 Pulse Oximetry 91 07/27/23 14:00 Oxygen Delivery Method Room Air 07/27/23 13:34 Fraction of Inspired Oxygen 50 07/27/23 15:16 Medical Decision Making MDM Narrative Medical decision making narrative: 87-year-old female COVID-19, non ST elevation [place] likely secondary to strain from COVID-19, and respiratory failure. Patient admitted for further management. Medical Records Medical records reviewed: Yes I reviewed the patient's medical records Lab Data Lab results reviewed: Yes I reviewed the patient's lab results Labs: Lab Results 07/27/23 07/27/23 Range/Units 13:50 14:01 WBC 6.79 (4.50-11.00) K/uL RBC 3.96 L (4.00-5.20) m/uL Hgb 13.2 (12.0-16.0) gm/dL Hct 43.4 (33.0-51.0) % MCV 110 H (80-100) fL MCH 33 (26-34) pg MCHC 30 L (32-36) gm/dL RDW Coeff of [place] 15.7 H (11.5-15.5) % Plt Count 240 (140-440) K/uL Neut % (Auto) 78.3 H (42.0-72.0) % Lymph % (Auto) 6.8 L (20-44) % [place] % (Auto) 13.0 H (0.0-11.0) % Eos % (Auto) 0.6 (0.0-7.0) % Baso % (Auto) 0.9 (0.0-3.0) % Neut # (Auto) 5.30 (1.7-7.0) K/uL Lymph # (Auto) 0.50 L (0.90-2.90) K/uL [place] # (Auto) 0.90 (0.00-0.90) K/UL Eos # (Auto) 0.04 (0.00-0.50) K/uL Baso # (Auto) 0.06 (0.00-0.30) K/uL Abs Immat Gran (auto) 0.03 (0.00-0.30) K/uL Imm/Tot Granulo (auto) 0.4 % VBG pH 7.324 (7.32-7.43) VBG pCO2 69 H* (40-50) mmHG VBG pO2 40.5 (25-47) mmHG VBG HCO3 36 H (21-28) mmol/L Sodium 137 (135-149) mmol/L Potassium 3.6 (3.6-5.1) mmol/L Chloride 91 L (96-114) mmol/L Carbon Dioxide 35 H (20-32) mmol/L Anion Gap 11 (7-15) mEq/L BUN 22 (7-30) mg/dL Creatinine 0.8 (0.5-1.5) mg/dL Estimated Creat Clear 34.87 Estimated GFR 72 ml/min Glucose 151 H (60-115) mg/dL Lactate 3.1 H (0.5-1.9) mmol/L Calcium 9.1 (8.4-10.6) mg/dL Total Bilirubin 1.5 (0.1-1.5) mg/dL Direct Bilirubin 0.2 (0.0-0.5) mg/dL AST 75 H (12-35) U/L ALT 42 H (4-35) U/L Alkaline Phosphatase 200 H (40-150) U/L Troponin I 0.48 H* (0.01-0.04) ng/mL C-Reactive Protein 0.9 (0.5-1.0) mg/dL NT-Pro-B Natriuret Pep 5650 pg/mL Total Protein 8.3 (6.0-8.3) g/dL Albumin 3.6 (3.3-5.0) g/dL SARS-CoV-2 (PCR) POSITIVE SARS-CoV-2 A (Negative) Influenza Type A (PCR) Negative PCR FLU A (Negative) Influenza Type B (PCR) Negative PCR FLU B (Negative) RSV (PCR) Negative PCR RSV (Negative) POC Troponin I 0.35 H (0.01-0.04) ng/ml Imaging Data Chest x-ray: Attestation: I have reviewed the pertinent imaging results. Radiologist's impression: Chest 1 views. COMPARISON: April 26, 2023. FINDINGS: Cardiovascular and mediastinum: Stable cardiomegaly and vascular congestion. Lungs and pleural spaces: Interstitial prominence. Probable small bilateral pleural effusions. No pneumothorax. Bones and soft tissues: No significant findings. IMPRESSION: Probable CHF exacerbation. Superimposed pneumonia should be clinically excluded. Critical Care Time Critical Care Time Total Critical Care Time in Minutes: 60 Discharge Plan Discharge Clinical Impression: COVID-19, Atrial fibrillation, Acute respiratory failure, Non-ST elevation [place] (NSTEMI) Patient Disposition: Admitted As Inpatient Condition: Guarded
[2023-07-27] MEDS: FUROSEMIDE 10 MG/ML inj 40 MG IVP (15:07)
[2023-07-27] MEDS: dexAMETHasone 4 MG/ML VIAL 6 MG IV (15:17)
[2023-07-27 16:21] LABS: Appearance Urine Cloudy (Clear); Bilirubin Urine Negative (Negative); Blood Urine Negative (Negative); Color Urine Yellow (Yellow); Glucose Urine Negative (Negative); Ketones Urine Negative (Negative); Leukocyte Esterase Urine Negative (Negative); Nitrite Urine Negative (Negative); Protein Urine 1+ (Negative); Specific Gravity Urine 1.025 (1.000-1.030); pH Urine 5.5 (5.0-8.5)
[2023-07-27 16:24] LABS: Fine Granular Casts Urine Few; RBC Urine 0-2 (0-2); Squamous Epithelial Cell Urine Few (None-Few)
[2023-07-27 18:08] LABS: Troponin I* 0.48 ng/mL (0.01-0.04)
[2023-07-27] MEDS: METOPROLOL TARTRATE 1 MG/ML inj 5 MG IVP ×2 (18:09→23:04)
[2023-07-27] MEDS: OLANZapine 5 MG/ML inj IVP (18:11)
--- NOTE | 2023-07-27 18:16 | PM.IMHP1 ---
Hospitalist- H&P: HPI History of Present Illness Date Seen: 07/27/23 Chief complaint: Recovering from broken pelvis-fell last night back Narrative: Sakina Taveras is a 87 year old female who was brought in to the emergency room today by her daughter for concerns of low back pain after a fall at home yesterday. Daughter also notes that her mother has been intermittently out of it with + confusion 2 days ago. She did not have any other associated symptoms at that time, and yesterday seemed back to normal. Today, she was seemingly confused and having conversations with her who 9 years ago. 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 ER Course and Findings: - oxygen saturation in the 60%s on RA upon ED arrival - elevated troponin, a fib with RVR on EKG (no STEMI), evidence of pulmonary edema on CXR - + COVID - heparin gtt initiated, given IV Lasix - BIPAP initiated - goals of care discussion held in the emergency room; patient is DNR/DNI per previous conversations with family. They are amenable to medical management Given the above findings, patient is admitted to our CCU. She is unable to provide me any meaningful history this afternoon; past medical history is updated below. Given patient's BiPAP use and obtundation, she is not able to take p.o. medications at this time. Review of Systems Status of ROS: Reports: unobtainable due to medical condition [facility] Medical History (Updated 07/27/23 @ 20:02 by Makayla Hanna MD) Physical debility ?R53.81 - Other malaise (ICD-10) Age-related cognitive decline ?R41.81 - Age-related cognitive decline (ICD-10) DJD of right shoulder ?M19.011 - Primary osteoarthritis, right shoulder (ICD-10) Seasonal allergic rhinitis ?J30.2 - Other seasonal allergic rhinitis (ICD-10) Rotator cuff arthropathy of left shoulder ?M12.812 - Other specific arthropathies, not elsewhere classified, left shoulder (ICD-10) Restless legs syndrome ?G25.81 - Restless legs syndrome (ICD-10) Polyp of colon ?K63.5 - Polyp of colon (ICD-10) Diverticulosis of intestine (04/21/10) ?K57.90 - Diverticulosis of intestine, part unspecified, without perforation or abscess without bleeding (ICD-10) Constipation ?K59.00 - Constipation, unspecified (ICD-10) Basal cell carcinoma of nose ?C44.311 - Basal cell carcinoma of skin of nose (ICD-10) Hiatal hernia ?K44.9 - Diaphragmatic hernia without obstruction or gangrene (ICD-10) Uterine cancer ?C55 - Malignant neoplasm of uterus, part unspecified (ICD-10) Surgical History History of colonoscopy ?Z98.890 - Other specified postprocedural states (ICD-10) History of hysterectomy ?Z90.710 - Acquired absence of both cervix and uterus (ICD-10) History of cholecystectomy ?Z90.49 - Acquired absence of other specified parts of digestive tract (ICD-10) History of appendectomy ?Z90.49 - Acquired absence of other specified parts of digestive tract (ICD-10) Social History Narrative: . Lives alone in her home. Needs daily support from children who live nearby. Declining cognition. Legally deaf and blind. Designates daughter, Gabbie Domingo, as power of staff attorney for health should that be needed. Requests DNR DNI resuscitation status. Dr. Juan Ac is her primary care physician. What is your current living situation?: unable to answer Problems where you live: unable to answer Problems where you live details: unable to answer In the past 12 months, utilities in danger of being shut off: unable to answer In past 12 months, lack of transportation kept you from medical appts, meetings, work, or getting things needed for daily living: unable to answer In the past 12 mos, have been you worried that your food would run out before you had money to buy more?: unable to answer In the past 12 mos, the food you bought just didn't last and you didn't have money to buy more?: unable to answer Highest level of school completed/degree received: GED or equivalent Smoking Status: Former smoker Do you use any of these nicotine containing products: None Second hand tobacco smoke exposure: No How often do you have a drink containing alcohol: never How often do you have six or more drinks on one occasion: Never AUDIT-C Alcohol total score: 0 Non-prescribed substance use: denies use How often does anyone, including family, friends and others, physically hurt you: unable to answer How often does anyone, including family, friends and others, insult or talk down to you: unable to answer How often does anyone, including family, friends and others, threaten you with harm: unable to answer How often does anyone, including family, friends and others, scream or curse at you: unable to answer Little interest or pleasure in doing things: not at all Feeling down, depressed, or hopeless: not at all Gender Identity: female service: No Meds Home Medications and Allergies Home Medications Medication Instructions Recorded Confirmed Type cholecalciferol (vitamin D3) 25 2,000 unit PO DAILY 06/04/22 07/27/23 History mcg (1,000 unit) tablet multivitamin 1 tab PO DAILY 06/04/22 07/27/23 History potassium chloride 10 mEq 20 meq PO DAILY 04/26/23 07/27/23 History tablet,extended release acetaminophen 650 mg 1,300 mg PO Q8H PRN 07/27/23 07/27/23 History tablet,extended release Home Medication Comments: The above list is incomplete: Patient is also on mirtazapine at night, Lasix, apixaban, Paxil, rosuvastatin, zolpidem, omeprazole Allergies Allergy/AdvReac Type Severity Reaction Status Date / Time adhesive Allergy Intermediate Redness of Verified 06/02/23 14:14 Skin Exam Narrative: Exam Narrative: GEN: Sleeping in bed, appears comfortable, wearing BIPAP HEENT: Normal external ears, EOMIs bilaterally, no scleral icterus CV: Atrial fibrillation with rate in the 90-100s on exam R: Decreased bilateral bases with fine bibasilar crackles Ab: soft, tolerates palpation Ext: 1+ pitting edema BLE Const: Vital Signs, click to edit/add: Vital Signs - 24 hr 07/27/23 13:34 07/27/23 14:00 07/27/23 14:35 Temperature 97.2 F L Pulse Rate [Right Pulse Oximeter] 120 H 105 H Pulse Rate [Right Radial] Respiratory Rate 24 23 Blood Pressure [Ri ght Arm] Blood Pressure [Ri ght Upper Arm] 144/86 H 143/87 H Pulse Oximetry 66 L 91 87 L Oxygen Delivery Me thod Room Air BiPAP Fraction of Inspir ed Oxygen 07/27/23 14:50 07/27/23 15:16 07/27/23 15:30 Temperature Pulse Rate [Right Pulse Oximeter] 105 H 104 H Pulse Rate [Right Radial] Respiratory Rate Blood Pressure [Ri ght Arm] Blood Pressure [Ri ght Upper Arm] 154/81 H 140/69 H Pulse Oximetry 87 L 99 Oxygen Delivery Me thod BiPAP BiPAP Fraction of Inspir ed Oxygen 50 07/27/23 17:08 Temperature 99.7 F H Pulse Rate [Right Pulse Oximeter] Pulse Rate [Right Radial] 95 Respiratory Rate 28 H Blood Pressure [Ri ght Arm] 140/99 H Blood Pressure [Ri ght Upper Arm] Pulse Oximetry 98 Oxygen Delivery Me thod BiPAP Fraction of Inspir ed Oxygen Hospitalist - H&P: Result Labs Labs: Short CBC 07/27/23 Range/Units 13:50 WBC 6.79 (4.50-11.00) K/uL Hgb 13.2 (12.0-16.0) gm/dL Hct 43.4 (33.0-51.0) % Plt Count 240 (140-440) K/uL BMP 07/27/23 13:50 Sodium 137 Potassium 3.6 Chloride 91 L Carbon Dioxide 35 H BUN 22 Creatinine 0.8 Glucose 151 H Calcium 9.1 Cardiac Enzymes 07/27/23 07/27/23 Range/Units 13:50 17:10 Troponin I 0.48 H* 0.48 H* (0.01-0.04) ng/mL Liver Function 07/27/23 Range/Units 13:50 Total Bilirubin 1.5 (0.1-1.5) mg/dL Direct Bilirubin 0.2 (0.0-0.5) mg/dL AST 75 H (12-35) U/L ALT 42 H (4-35) U/L Alkaline Phosphatase 200 H (40-150) U/L Albumin 3.6 (3.3-5.0) g/dL Urine 07/27/23 Range/Units 15:10 Urine Color Yellow (Yellow) Urine Appearance Cloudy A (Clear) Urine pH 5.5 (5.0-8.5) Ur Specific [place] 1.025 (1.000-1.030) Urine Protein 1+ A (Negative) Urine Glucose (UA) Negative (Negative) Assessment and Plan Assessment and plan (1) Non-ST elevation [place] (NSTEMI): Problem comment: - as evidenced by pulmonary edema and elevated troponin - heparin drip initiated in ER - follow troponin to peak - TTE ordered Status: Acute (2) Acute respiratory failure: Problem comment: - likely multifactorial: NSTEMI, atrial fibrillation, pulmonary edema, COVID - Continue BiPAP, RT following - rate control with Metoprolol IV, scheduled Lasix given clinical evidence of fluid overload, follow Is/Os with ryan - does not appear to have any infectious process at this time Status: Acute (3) Atrial fibrillation: Problem comment: - scheduled IV metoprolol, on heparin gtt Status: Acute (4) COVID-19: Problem comment: - unclear if contributing to acute hypoxia; family has not noted any signs or symptoms of URI - given dexamethasone and remdesivir in the ER; plan to continue pending clinical course Status: Acute Plan - per above - IV PPI and heparin gtt for prophylaxis - family updated at bedside, questions answered. They are aware of patient's tenuous status at this time
[2023-07-27 21:36] LABS: Partial Thromboplastin Time* > 180 Seconds (23-33)
[2023-07-27] MEDS: PANTOPRAZOLE SODIUM 40 MG INJ IVP (21:42)
[2023-07-27] MEDS: SODIUM CHLORIDE 0.9 % (FLUSH) 10 ML SYRINGE 5 ML IVF (21:42)
[2023-07-27] MEDS: FUROSEMIDE 10 MG/ML inj 20 MG IVP (21:42)
[2023-07-27 22:37] LABS: Troponin I* 0.47 ng/mL (0.01-0.04)
[2023-07-27] MEDS: LORazepam 2 MG/ML inj 1 MG IVP (23:48)
[2023-07-28 02:07] VITALS: BP 116/61; PULSE 92; RESP 20; TEMP 36.3; O2SAT 100
[2023-07-28] MEDS: LORazepam 2 MG/ML inj 1 MG IVP (04:47)
--- NOTE | 2023-07-28 04:53 | PC.NURSE ---
Pt tolerated BiPap well this night. O2 @ 100%. Afebrile. Remains Lethargic and unable to answer questions. Pt gets stiff and rigid when disturbed. Voiding via Castro.
[2023-07-28] MEDS: FUROSEMIDE 10 MG/ML inj 20 MG IVP (05:21)
[2023-07-28] MEDS: METOPROLOL TARTRATE 1 MG/ML inj 5 MG IVP (05:21)
[2023-07-28 05:24] LABS: HCO3 VBG 41 mmol/L (21-28); Lactate* 1.4 mmol/L (0.5-1.9); PO2 VBG 27.6 mmHG (25-47); pH VBG 7.294 (7.32-7.43)
[2023-07-28 05:27] LABS: Basophils Absolute Auto 0.01 K/uL (0.00-0.30); Basophils Percent Auto 0.2 % (0.0-3.0); Hematocrit 40.5 % (33.0-51.0); Hemoglobin* 12.1 gm/dL (12.0-16.0); Immature Granulocytes Abs Auto 0.02 K/uL (0.00-0.30); Immature Granulocytes Pct Auto 0.3 %; Lymphocytes Percent Auto 10.5 % (20-44); Mean Corpuscular HGB Conc 30 gm/dL (32-36); Mean Corpuscular Hemoglobin 33 pg (26-34); Mean Corpuscular Volume 112 fL (80-100); Platelet Count* 173 K/uL (140-440); RDW Coefficient of Variation % 15.3 % (11.5-15.5); Red Blood Count 3.62 m/uL (4.00-5.20)
[2023-07-28 05:28] LABS: Slide Review Reflex No
[2023-07-28 05:29] LABS: PCO2 VBG 85 mmHG (40-50)
[2023-07-28 05:42] LABS: Albumin* 2.9 g/dL (3.3-5.0); Chloride* 92 mmol/L (96-114); Sodium* 139 mmol/L (135-149)
[2023-07-28 05:43] LABS: Potassium* 4.2 mmol/L (3.6-5.1)
[2023-07-28 05:44] LABS: INR 1.57 (0.91-1.10); Prothrombin Time 19.6 Seconds
[2023-07-28 05:45] LABS: Alanine Aminotransferase* 37 U/L (4-35); Alkaline Phosphatase* 171 U/L (40-150); Aspartate Amino Transferase* 58 U/L (12-35); Bilirubin Total* 0.8 mg/dL (0.1-1.5); Blood Urea Nitrogen* 24 mg/dL (7-30); Creatinine* 0.8 mg/dL (0.5-1.5); Est. Creatinine Clearance* 34.87; Estimated Glomerular Filt Rate 72 ml/min; Total Protein* 6.9 g/dL (6.0-8.3)
[2023-07-28 05:46] LABS: Calcium* 8.6 mg/dL (8.4-10.6); Glucose* 108 mg/dL (60-115); Magnesium* 1.8 mg/dL (1.5-2.6)
[2023-07-28 05:52] LABS: Anion Gap 9 mEq/L (7-15); Carbon Dioxide* 38 mmol/L (20-32)
[2023-07-28 05:57] LABS: NT Pro B Type NatriureticPept* 5660 pg/mL
[2023-07-28 05:59] LABS: Partial Thromboplastin Time* > 180 Seconds (23-33)
[2023-07-28 07:00] VITALS: BP 99/74; PULSE 70; PULSE 77; RESP 26; O2SAT 97
[2023-07-28 07:30] VITALS: PULSE 70
--- NOTE | 2023-07-28 08:00 | CRLHL7_ITS ---
For Patients: As a result of the Century Cures Act, medical imaging exams and procedure reports are released immediately into your electronic medical record. You may view this report before your referring provider. If you have questions, please contact your health care provider. INDICATION: Short of breath COMPARISON: 07/27/2023 TECHNIQUE: 1 view chest radiograph. FINDINGS: Lung volumes are moderate. The patient is rotated significantly to the right which limits examination of the right lung. Underlying interstitial opacities in a pattern most suggestive of pulmonary edema. No pleural effusion. No pneumothorax. No pneumomediastinum. IMPRESSION: Rotated radiograph which limits evaluation. Probable pulmonary edema. Dictated by Rosenda Adams MD @ 07/28/2023 8:48:11 AM (Electronically Signed)
[2023-07-28 08:18] VITALS: RESP 26; O2SAT 95
[2023-07-28] MEDS: LORazepam 1 MG TABLET PO ×5 (11:19→20:10)
[2023-07-28] MEDS: fentaNYL 12 mcg/hr PATCH 1 PATCH TRANSDERMA ×2 (11:19→22:56)
[2023-07-28] MEDS: MORPHINE 10 MG/0.5 ML ORAL SOLN PO (12:55)
--- NOTE | 2023-07-28 13:04 | PC.SOCIAL ---
Discharge planning: Received call from Jeanna at [facility], , stating that pt is currently receiving home health care provider,OT,and PT from their agency. They requested information be faxed with orders to resume home care if needed at discharge. bag shop worker to follow up as needed.
[2023-07-28] MEDS: MORPHINE 20 MG/ML **CONCENTRATE** ORAL PO ×8 (13:50→20:09)
[2023-07-28] MEDS: HALOPERIDOL 5 MG/ML INJ IV (14:14)
--- NOTE | 2023-07-28 14:42 | P.IMPN_ITS ---
Progress Note: A&P Assessment and plan (1) Acute respiratory failure: Problem details: - likely multifactorial: NSTEMI, atrial fibrillation, pulmonary edema, COVID - Continue BiPAP, RT following - rate control with Metoprolol IV, scheduled Lasix given clinical evidence of fluid overload, follow Is/Os with ryan - does not appear to have any infectious process at this time, afebrile, no leukocytosis, procalcitonin negative - 07/28: As discussed with daughters, will continue BiPAP until family arrives, then plan to transition to nasal cannula for comfort Status: Acute (2) Non-ST elevation [place] (NSTEMI): Problem details: - as evidenced by pulmonary edema and elevated troponin - heparin drip initiated in ER - follow troponin to peak - TTE ordered - daughters as decision makers do not want to pursue this Status: Acute (3) Atrial fibrillation: Problem details: - scheduled IV metoprolol, on heparin gtt - plan to discontinue IV medications after family members arrive Status: Acute (4) COVID-19: Problem details: - unclear if contributing to acute hypoxia; family has not noted any signs or symptoms of URI - given dexamethasone and remdesivir in the ER; plan to continue pending clini haylee course - will discontinue in setting of comfort cares Status: Acute Plan As the afternoon progressed, multiple family members arrived, several in the room at the same time. Patient notably more agitated, restless. Further discussion with daughters Gabbie and Ofe as decision makers to remove BiPAP and stop heparin drip at this time. Will proceed with oxygen as needed for comfort via nasal cannula or other comfortable modalities. We will plan to make comfortable, sedate as needed using IV and oral medications. client services specialist consulted to begin hospice consult at family's request. Family has been asked to be respectful of number of people in the room at a time as this can be agitating. Family was also reminded as patient is COVID positive and they are all moving in and out of the room to be respectful of risk for increasing infection to staff and current hospital patients. Hospital security was involved in order to keep them from congregating repeatedly in the hallways. Several were noncompliant with request to wear masks while outside of the patient's room. Time Spent With Patient Total time spent: Total time spent caring for the patient today was 60 minutes. This includes time spent for the visit reviewing the chart, time spent during the visit, time spent after the visit and documentation and planning in coordination of care. Subjective Date Seen: 07/28/23 Interval history: Patient is seen with multiple family members in the room this morning, including her daughters Gabbie and Ofe who are her decision makers. Patient is wearing BiPAP, not responsive to conversation. Discussion is directed with Gabbie and Ofe regarding current state of health and goals of care. After a lengthy conversation including discussion regarding further interventions including obtaining a 2nd peripheral IV and proceeding with echocardiogram, IV diuresis, BiPAP daughters do not want to pursue this. Decision is made to proceed with comfort cares. Daughters would like family members from [place] and [place] to be able to see her in the hospital. Her daughter Gabbie does mention that though her mother would not want to be seen like this in her current condition, she feels it is important for family members to see her before she dies. Decision is made to leave her on BiPAP and IV heparin to prolong current state in order for family to arrive. We did discuss that once these modalities are removed, she would likely not live long enough to be transferred to home. All present family members verbalized understanding. Questions answered. Exam Narrative: Exam Narrative: PHYSICAL EXAM General: Lying in bed, BiPAP in place, nonresponsive to conversation Cardiovascular: RRR Pulmonary: BiPAP in place Neurological: Not responding to conversation Skin: Exposed skin warm, dry. Const: Vital Signs, click to edit/add: Vital Signs - 24 hr 07/27/23 14:50 07/27/23 15:16 07/27/23 15:30 Temperature Pulse Rate Pulse Rate [Right Pulse Oximeter] 105 H 104 H Pulse Rate [Right Radial] Respiratory Rate Blood Pressure [Ri ght Arm] Blood Pressure [Ri ght Upper Arm] 154/81 H 140/69 H Pulse Oximetry 87 L 99 Oxygen Delivery Me thod BiPAP BiPAP Oxygen Flow Rate Fraction of Inspir ed Oxygen 50 07/27/23 17:08 07/27/23 19:12 07/27/23 19:32 Temperature 99.7 F H 97.4 F L Pulse Rate Pulse Rate [Right Pulse Oximeter] Pulse Rate [Right Radial] 95 85 Respiratory Rate 28 H 20 20 Blood Pressure [Ri ght Arm] 140/99 H 126/88 Blood Pressure [Ri ght Upper Arm] Pulse Oximetry 98 100 100 Oxygen Delivery Me thod BiPAP BiPAP BiPAP Oxygen Flow Rate Fraction of Inspir ed Oxygen 50 07/27/23 22:07 07/27/23 22:10 07/27/23 22:11 Temperature Pulse Rate Pulse Rate [Right Pulse Oximeter] Pulse Rate [Right Radial] 85 Respiratory Rate 20 20 Blood Pressure [Ri ght Arm] Blood Pressure [Ri ght Upper Arm] Pulse Oximetry 100 100 Oxygen Delivery Me thod BiPAP Oxygen Flow Rate Fraction of Inspir ed Oxygen 50 07/27/23 22:47 07/28/23 02:07 07/28/23 07:00 Temperature 97.4 F L 97.4 F L Pulse Rate Pulse Rate [Right Pulse Oximeter] Pulse Rate [Right Radial] 94 92 70 Respiratory Rate 20 20 26 H Blood Pressure [Ri ght Arm] 119/72 116/61 99/74 Blood Pressure [Ri ght Upper Arm] Pulse Oximetry 100 100 97 Oxygen Delivery Me thod BiPAP BiPAP BiPAP Oxygen Flow Rate 10 Fraction of Inspir ed Oxygen 50 50 25 07/28/23 07:00 07/28/23 07:30 07/28/23 08:18 Temperature Pulse Rate 77 Pulse Rate [Right Pulse Oximeter] Pulse Rate [Right Radial] 70 Respiratory Rate Blood Pressure [Ri ght Arm] Blood Pressure [Ri ght Upper Arm] Pulse Oximetry 95 Oxygen Delivery Me thod Oxygen Flow Rate Fraction of Inspir ed Oxygen 07/28/23 08:18 07/28/23 09:56 Temperature Pulse Rate Pulse Rate [Right Pulse Oximeter] Pulse Rate [Right Radial] Respiratory Rate 26 H Blood Pressure [Ri ght Arm] Blood Pressure [Ri ght Upper Arm] Pulse Oximetry 95 Oxygen Delivery Me thod BiPAP Oxygen Flow Rate Fraction of Inspir ed Oxygen 25 25 Labs Labs: Laboratory Results - last 24 hr 07/27/23 07/27/23 07/27/23 13:50 15:10 17:10 WBC RBC Hgb Hct MCV MCH MCHC RDW Coeff of [place] Plt Count Neut % (Auto) Lymph % (Auto) [place] % (Auto) Eos % (Auto) Baso % (Auto) Neut # (Auto) Lymph # (Auto) [place] # (Auto) Eos # (Auto) Baso # (Auto) Abs Immat Gran (auto) Imm/Tot Granulo (auto) INR APTT VBG pH VBG pCO2 VBG pO2 VBG HCO3 Sodium 137 Potassium 3.6 Chloride 91 L Carbon Dioxide 35 H Anion Gap 11 BUN 22 Creatinine 0.8 Estimated Creat Clear 34.87 Estimated GFR 72 Glucose 151 H Lactate Calcium 9.1 Magnesium Total Bilirubin 1.5 Direct Bilirubin 0.2 AST 75 H ALT 42 H Alkaline Phosphatase 200 H Troponin I 0.48 H* 0.48 H* C-Reactive Protein 0.9 NT-Pro-B Natriuret Pep 5650 Total Protein 8.3 Albumin 3.6 Procalcitonin Urine Color Yellow Urine Appearance Cloudy A Urine pH 5.5 Ur Specific [place] 1.025 Urine Protein 1+ A Urine Glucose (UA) Negative Urine Ketones Negative Urine Blood Negative Urine Nitrite Negative Urine Bilirubin Negative Urine Urobilinogen 2.0 A Ur Leukocyte Esterase Negative Urine RBC 0-2 Urine WBC 2-5 Ur Squamous Epith Cells Few Urine Bacteria None Fine Granular Casts Few A SARS-CoV-2 (PCR) POSITIVE SARS-CoV-2 A Influenza Type A (PCR) Negative PCR FLU A Influenza Type B (PCR) Negative PCR FLU B RSV (PCR) Negative PCR RSV 07/27/23 07/27/23 07/28/23 20:48 21:38 05:20 WBC 5.80 RBC 3.62 L Hgb 12.1 Hct 40.5 MCV 112 H MCH 33 MCHC 30 L RDW Coeff of [place] 15.3 Plt Count 173 Neut % (Auto) 75.0 H Lymph % (Auto) 10.5 L [place] % (Auto) 14.0 H Eos % (Auto) 0.0 Baso % (Auto) 0.2 Neut # (Auto) 4.40 Lymph # (Auto) 0.60 L [place] # (Auto) 0.80 Eos # (Auto) 0.00 Baso # (Auto) 0.01 Abs Immat Gran (auto) 0.02 Imm/Tot Granulo (auto) 0.3 INR 1.57 H APTT > 180 H* > 180 H* VBG pH 7.294 L VBG pCO2 85 H* VBG pO2 27.6 VBG HCO3 41 H Sodium 139 Potassium 4.2 Chloride 92 L Carbon Dioxide 38 H Anion Gap 9 BUN 24 Creatinine 0.8 Estimated Creat Clear 34.87 Estimated GFR 72 Glucose 108 Lactate 1.4 Calcium 8.6 Magnesium 1.8 Total Bilirubin 0.8 Direct Bilirubin AST 58 H ALT 37 H Alkaline Phosphatase 171 H Troponin I 0.47 H* C-Reactive Protein NT-Pro-B Natriuret Pep 5660 Total Protein 6.9 Albumin 2.9 L Procalcitonin 0.10 Urine Color Urine Appearance Urine pH Ur Specific [place] Urine Protein Urine Glucose (UA) Urine Ketones Urine Blood Urine Nitrite Urine Bilirubin Urine Urobilinogen Ur Leukocyte Esterase Urine RBC Urine WBC Ur Squamous Epith Cells Urine Bacteria Fine Granular Casts SARS-CoV-2 (PCR) Influenza Type A (PCR) Influenza Type B (PCR) RSV (PCR)
[2023-07-28 15:15] VITALS: PULSE 70
[2023-07-28] MEDS: diphenhydrAMINE 50 MG/ML inj IVP (15:20)
[2023-07-28] MEDS: HYDROmorphone 0.5 mg/0.5 ml inj IVP (15:20)
[2023-07-28] MEDS: SODIUM CHLORIDE 0.9 % (FLUSH) 10 ML SYRINGE 5 ML IVF ×2 (15:24→15:25)
[2023-07-28 15:30] VITALS: RESP 26; O2SAT 95
[2023-07-28] MEDS: LORazepam 2 MG/ML inj IVP ×5 (15:49→18:57)
--- NOTE | 2023-07-28 16:03 | PC.NURSE ---
shift note: pt t&r for comfort but prefers to lay on rt side. Castro patent and drainaing cloudy boo urine. LS absent posteriorly. anterior Rt crkls. Pt on bipap till 1310. Pt refused NC O2. HR irreg. bilat l/e tight & edematous with redness to bilat shins. Lt great toe is slightly mottled. Pt became anxious and thrashing in bed. Family at bedside reassuring and supporting pt. Ativan, PO morphine given with minimal response. Dr. Nicolas updated on pt's condition. Orders to increase frequency of PO morphine and Haldol added. IV SL @1310. SL patent and intact to rt FA. Tele dc'd @1310. multiple family at bedside; administration involved. Reported off to Darío VELASQUEZ.
[2023-07-28] MEDS: SCOPOLAMINE 1 MG/3 DAY PATCH 1 PATCH TRANSDERMA (17:20)
--- NOTE | 2023-07-28 18:02 | PC.NURSE ---
Tax Examiner received report from Shanel VELASQUEZ at 1400. PRN Medication given to provide comfort. Tax Examiner gave hand off to Vince VELASQUEZ to cover Pt. Tax Examiner gave report to Anamika VELASQUEZ at 1500 who took over care.
--- NOTE | 2023-07-28 19:27 | PC.NURSE ---
End of shift. pt was restless, and moving all extremities at the start of the shift. she got po and IV meds every 30 minutes. was able to pt to be more claim and restful. o2 was applied @ 2L nc. Matthew is patent. MAGED is patent. she is non verbal. po cares done. she was turned and repositioned. family was in room and caring and loving. family was very thankful. later family and POA asked for o2 to be taken off. pt has irregular respirations. arms are legs are cold. color is fisher. family is asking questions. md was updated. heels are off bed pillow under the calves. pt is more comfortable now.
--- NOTE | 2023-07-28 22:59 | PC.NURSE ---
Pt on comfort cares. Appeared comfortable during assessment, apneic breathing noted. Extremities cool to the touch and cyanotic. PRN Roxanol and Ativan given and pt repositioned. Family at bedside. Pt's TOD 2039. [facility] called and updated with pt information. She was declined as a candidate for donation. Family's preferred home called. They arrived at 2200 to pick-up pt. Belongings sent with family. Pt wearing gold wedding band. Fentanyl patch to left chest removed and wasted with Hattie Bosch RN. IV and Matthew monzon'ed.
--- NOTE | 2023-08-02 07:46 | P.DN_ITS ---
Pronouncement Note Date and Time of Date of : 07/28/23 Time of : 20:40 Contributing Factors (1) Acute respiratory failure: Contributing factors: - presented with pulmonary edema and acute hypoxic respiratory failure, in addition to elevated troponin (2) Non-ST elevation [place] (NSTEMI): (3) Atrial fibrillation: (4) COVID-19: Summary Additional details: Sakina was brought to the ER by family members for not feeling well (had fallen at home and complained on back pain). On arrival to ED, found to have oxygen saturations in the 60% range on RA, supplemental oxygen initiated and increased to BIPAP administration. Troponin elevated, CXR c/w significant pulmonary edema. Treatment with heparin gtt and Lasix IV initiated; patient did not significantly respond to these treatments overnight, so family made decision to proceed with comfort-focused therapy on day 1. Patient was kept comfortable with Morphine and Ativan, family at bedside. She on 07/28/23 at 2040. Additional Data Confirmation of : no pulse, no respirations and no heart sounds Family: at bedside Attending physician: Makayla Hanna MD Date Seen: 07/28/23 Was code activated?: No Autopsy requested?: No disability insurance claim examiner notified?: No
== END 2023-07-28 22:00 | disposition expired | DRG 189 ==
LOC: ED 15:17 → MEDSURG 16:31
PROVIDERS: Admitting Provider Family Medicine; Emergency Provider Family Medicine; PCP Family Medicine; Visit Provider Family Medicine
DX: J96.01 Acute respiratory failure with hypoxia (principal); U07.1 COVID-19; I21.4 Non-ST elevation (NSTEMI) myocardial infarction; J81.1 Chronic pulmonary edema; I48.20 Chronic atrial fibrillation, unspecified; R41.81 Age-related cognitive decline; R53.81 Other malaise; Z79.01 Long term (current) use of anticoagulants; E78.5 Hyperlipidemia, unspecified; K21.9 Gastro-esophageal reflux disease without esophagitis; I27.20 Pulmonary hypertension, unspecified; I10 Essential (primary) hypertension; F41.9 Anxiety disorder, unspecified; H35.3190 Nonexudative age-related macular degeneration, unspecified eye, stage unspecified; G47.00 Insomnia, unspecified
CPT/HCPCS: 36415; 71045; 80048; 80053; 80076; 81003; 81015; 82803; 83605; 83735; 83880; 84145; 84484; 85025; 85610; 85730; 86140; 87631; 93005; 94660; 94761; 99285; 99291; G0378; A9270; C9113; J1100; J1170; J1200; J1630; J1644; J1940; J2060; J7050; J7120; S0166